=== PATIENT | male | born 1940 | race Two or more races ===

== ENCOUNTER 2022-08-23 16:08 | Emergency (ER) | payer MEDICARE, OTHER ==
[~2022-08-23] VITALS: Ht 165.1 cm; Wt 72.5 kg
[2022-08-23 20:45] VITALS: BP 118/71
== END 2022-08-23 20:50 | disposition home or self-care (01) ==
LOC: ER 16:08
DX: M25.511 Pain in right shoulder (principal); R94.31 Abnormal electrocardiogram [ECG] [EKG]; J44.9 Chronic obstructive pulmonary disease, unspecified; Z90.49 Acquired absence of other specified parts of digestive tract; Z88.1 Allergy status to other antibiotic agents; W06.XXXA Fall from bed, initial encounter; Y93.89 Activity, other specified; Y92.89 Other specified places as the place of occurrence of the external cause; Y99.8 Other external cause status
CPT/HCPCS: 73030; 93005

== ENCOUNTER 2022-10-25 21:22 | Inpatient (IN) | payer MEDICARE, OTHER ==
[~2022-10-25] VITALS: Ht 154.9 cm; Wt 71.3 kg
[2022-10-25] MEDS ORDERED: DexAMETHasone SOD PHOS 10MG/1ML VIAL INJ IV ONE ×2 (21:45→22:15)
[2022-10-25] MEDS ORDERED: ALBUTEROL SULF 2.5 MG/0.5ML(0.5%) NEB SOLN NEB ONE ×3 (21:45→22:15)
[2022-10-25] MEDS ORDERED: LORazepam 2MG/ML-1ML VIAL ONE ×2 (21:56→22:28)
[2022-10-25] MEDS ORDERED: MAGNESIUM SULFATE 1GM/100ML 100 ML IV ONE (22:15)
[2022-10-25] MEDS ORDERED: AZITHROMYCIN 500MG/ 250ML 250 ML IV ONE (22:15)
[2022-10-25] MEDS ORDERED: LORazepam 2MG/ML-1ML VIAL IV ONE (22:30)
[2022-10-25] MEDS ORDERED: ROCURONIUM 10MG/ML 10ML VIAL IV ONE (22:32)
[2022-10-25] MEDS ORDERED: KETAMINE HCL 10 ML ONE (22:34)
[2022-10-25 22:40] VITALS: BP 159/78
[2022-10-25] MEDS ORDERED: PROPOFOL 100 ML IV ONE (22:42)
[2022-10-25] MEDS: PROPOFOL 100 ML IV SCH (22:45)
[2022-10-25 23:10] LABS: Basophils # (auto) 0 10 ^3/uL (0-0.2); Basophils % (auto) 0.1 % (0.0-2.0); Eosinophils # (auto) 0 10 ^3/uL (0-0.8); Hematocrit 39.6 % (41.0-53.0); Hemoglobin 12.6 g/dL (13.5-17.5); Lymphocytes # (auto) 0.8 10 ^3/uL (0.4-5.4); Lymphocytes % (auto) 4.4 % (10.0-50.0); Mean Corpuscular Hemoglobin 31.2 pg (28.0-32.0); Mean Corpuscular Volume 97.5 fL (80.0-100.0); Monocytes # (auto) 1.2 10 ^3/uL (0-1.3); Monocytes % (auto) 6.9 % (0.0-12.0); Neutrophils # (auto) 15.9 10 ^3/uL (1.6-8.6); Neutrophils % (auto) 88.6 % (37.0-80.0); Red Blood Cells 4.06 10^6/uL (4.5-5.90); Red Cell Distribution Width 13.6 % (11.8-14.3); White Blood Cell 17.9 10^3/uL (4.4-10.8)
[2022-10-25 23:18] LABS: INR 0.99 (0.9-1.15); Partial Thromboplastin Time 31.2 sec (24.6-33.4)
[2022-10-25 23:22] LABS: Calcium 8.5 mg/dL (8.5-10.1); Potassium 3.7 mmol/L (3.5-5.1)
[2022-10-25 23:25] LABS: BUN/Creatinine Ratio 34.8; Total Protein 6.1 g/dL (6.4-8.2)
[2022-10-26] VITALS (13 sets, daily range): BP systolic 93–109; BP diastolic 44–56
[2022-10-26] MEDS: fentaNYL Drip 2500mCg/250mlNS 250 ML IV SCH ×2 (00:15→00:30)
[2022-10-26] MEDS ORDERED: fentaNYL Drip 2500mCg/250mlNS 250 ML IV ONE (00:17)
[2022-10-26] MEDS ORDERED: KETAMINE 50mg/ML 10ml Vial (500mg/10ml) IM ONE (01:15)
[2022-10-26] MEDS ORDERED: ROCURONIUM 10MG/ML 10ML VIAL IV ONE ×4 (01:15→06:30)
[2022-10-26 01:18] LABS: Urine Specific Gravity 1.027 (1.001-1.035)
[2022-10-26 01:19] LABS: Urine Blood Negative /uL (Negative)
[2022-10-26] MEDS ORDERED: KETAMINE 50mg/ML 10ml Vial (500mg/10ml) IV ONE (01:30)
[2022-10-26] MEDS ORDERED: PIPERACILLIN-TAZOB 3.375GM 100 ML IV ONE (05:45)
[2022-10-26] MEDS ORDERED: cefTRIAXone 1GM/50ML D5W 50 ML IV ONE (09:45)
[2022-10-26] MEDS ORDERED: MORPHINE SULFATE INJ 2 MG/ml SYRG IV PRN (09:45)
[2022-10-26] MEDS ORDERED: NITROGLYCERIN 0.4 MG SL TAB SL PRN (09:45)
[2022-10-26] MEDS ORDERED: ALBUTEROL SULF 2.5 MG/0.5ML(0.5%) NEB SOLN NEB PRN (09:45)
[2022-10-26] MEDS ORDERED: IPRATROPIUM BROM 0.5 MG/2.5ML INH SOL NEB PRN (09:45)
[2022-10-26] MEDS: AZITHROMYCIN 500MG/ 250ML 250 ML IV SCH (10:00)
[2022-10-26] MEDS: PANTOPRAZOLE 40 MG/10 ML VIAL INJ IV SCH (10:37)
[2022-10-26] MEDS: methylPREDNISolone SOD SUCC 125 MG/2 ML VL IV SCH ×2 (10:38→22:23)
[2022-10-26] MEDS: ENOXAPARIN SOD 40 MG/0.4 ML SYRINGE SC SCH (10:38)
[2022-10-26] MEDS: IPRATROPIUM BROM 0.5 MG/2.5ML INH SOL NEB SCH ×2 (11:38→19:27)
[2022-10-26] MEDS: ALBUTEROL SULF 2.5 MG/0.5ML(0.5%) NEB SOLN NEB SCH ×2 (11:39→19:27)
[2022-10-26 12:14] LABS: Magnesium 10.3 mg/dL (1.6-2.6)
[2022-10-26] MEDS: PROPOFOL 100 ML IV SCH ×2 (14:14→22:46)
[2022-10-26] MEDS ORDERED: ALBUTEROL MEDNEB 2.5 mg/3ml NEB ONE (18:33)
[2022-10-26 23:30] LABS: Urine Blood Negative /uL (Negative); Urine Specific Gravity 1.021 (1.001-1.035)
[2022-10-26 23:44] LABS: Creatinine, Urine 124 mg/dL (30.0-125.0); Sodium Urine < 5 mmol/L (40-220)
[2022-10-27] VITALS (12 sets, daily range): BP systolic 100–117; BP diastolic 42–58
[2022-10-27] MEDS ORDERED: ALBUTEROL MEDNEB 2.5 mg/3ml NEB ONE ×4 (00:40→23:35)
[2022-10-27] MEDS ORDERED: IPRATROPIUM BROM 0.5 MG/2.5ML INH SOL ONE (00:40)
[2022-10-27] MEDS: ALBUTEROL SULF 2.5 MG/0.5ML(0.5%) NEB SOLN NEB SCH ×5 (00:58→23:38)
[2022-10-27] MEDS: IPRATROPIUM BROM 0.5 MG/2.5ML INH SOL NEB SCH ×5 (00:59→23:38)
[2022-10-27] MEDS: fentaNYL Drip 2500mCg/250mlNS 250 ML IV SCH ×2 (03:15→15:55)
[2022-10-27 07:06] LABS: Hematocrit 35.3 % (41.0-53.0); Hemoglobin 11.7 g/dL (13.5-17.5); Mean Corpuscular Hemoglobin 32.1 pg (28.0-32.0); Mean Corpuscular Volume 97.1 fL (80.0-100.0); Red Blood Cells 3.63 10^6/uL (4.5-5.90); Red Cell Distribution Width 13.4 % (11.8-14.3); White Blood Cell 12.2 10^3/uL (4.4-10.8)
[2022-10-27 07:14] LABS: Albumin 2.4 g/dL (3.4-5.0); BUN/Creatinine Ratio 43.8; Calcium 8.4 mg/dL (8.5-10.1); Potassium 4.8 mmol/L (3.5-5.1)
[2022-10-27 07:17] LABS: Bilirubin, Total 0.6 mg/dL (0.2-1.0); Total Protein 6.3 g/dL (6.4-8.2)
[2022-10-27 07:33] LABS: Basophils % (manual) 0 (0.0-2.0); Blast Cells 0; Eosinophils % (manual) 0 (0-7); Metamyelocytes % 0; Myelocytes % 0; Promyelocytes % 0; Reactive Lymphocytes 0
[2022-10-27] MEDS: PROPOFOL 100 ML IV SCH ×3 (08:04→22:05)
[2022-10-27] MEDS: cefTRIAXone 1GM/50ML D5W 50 ML IV SCH (09:12)
[2022-10-27] MEDS: methylPREDNISolone SOD SUCC 125 MG/2 ML VL IV SCH ×2 (10:56→22:07)
[2022-10-27] MEDS: PANTOPRAZOLE 40 MG/10 ML VIAL INJ IV SCH (10:56)
[2022-10-27] MEDS: ENOXAPARIN SOD 40 MG/0.4 ML SYRINGE SC SCH (10:57)
[2022-10-27] MEDS: AZITHROMYCIN 500MG/ 250ML 250 ML IV SCH (10:57)
[2022-10-27] MEDS ORDERED: SODIUM CHLORIDE 0.9% 1,000 ML IV SCH (12:45)
[2022-10-27] MEDS: SODIUM CHLORIDE 0.9% 1,000 ML IV SCH ×2 (13:32→23:00)
[2022-10-27 13:47] LABS: Band Neutrophils % (manual) 12; Lymphocytes % (manual) 5 (10.0-50.0); Monocytes % (manual) 1 (0-12)
[2022-10-27] MEDS ORDERED: OMNIPAQUE ORAL SOLN 500ml 12mg/ml PO ONE ×2 (14:35)
[2022-10-27 16:28] LABS: Urine Specific Gravity 1.014 (1.001-1.035)
[2022-10-27 16:29] LABS: Urine Blood Negative /uL (Negative)
[2022-10-27] MEDS ORDERED: IOHEXOL 300 MG/ML 100ML BOTTLE IJ ONE (16:39)
[2022-10-28] VITALS (62 sets, daily range): BP systolic 105–124; BP diastolic 43–95
[2022-10-28] MEDS ORDERED: ALBUTEROL MEDNEB 2.5 mg/3ml NEB ONE (05:16)
[2022-10-28] MEDS: IPRATROPIUM BROM 0.5 MG/2.5ML INH SOL NEB SCH ×3 (06:11→18:17)
[2022-10-28] MEDS: ALBUTEROL SULF 2.5 MG/0.5ML(0.5%) NEB SOLN NEB SCH ×3 (06:11→18:16)
[2022-10-28] MEDS: SODIUM CHLORIDE 0.9% 1,000 ML IV SCH ×2 (09:17→21:41)
[2022-10-28] MEDS: cefTRIAXone 1GM/50ML D5W 50 ML IV SCH (09:17)
[2022-10-28] MEDS: PANTOPRAZOLE 40 MG/10 ML VIAL INJ IV SCH (13:30)
[2022-10-28] MEDS: methylPREDNISolone SOD SUCC 125 MG/2 ML VL IV SCH ×2 (13:32→22:00)
[2022-10-28] MEDS: AZITHROMYCIN 500MG/ 250ML 250 ML IV SCH (13:34)
[2022-10-28] MEDS: ENOXAPARIN SOD 40 MG/0.4 ML SYRINGE SC SCH (13:34)
[2022-10-28 13:48] LABS: Basophils # (auto) 0 10 ^3/uL (0-0.2); Basophils % (auto) 0.1 % (0.0-2.0); Eosinophils # (auto) 0 10 ^3/uL (0-0.8); Hematocrit 34.2 % (41.0-53.0); Hemoglobin 11.2 g/dL (13.5-17.5); Lymphocytes # (auto) 0.4 10 ^3/uL (0.4-5.4); Lymphocytes % (auto) 3.8 % (10.0-50.0); Mean Corpuscular Hgb Conc. 32.7 g/dL (32.0-36.0); Mean Corpuscular Volume 97.9 fL (80.0-100.0); Monocytes % (auto) 9.8 % (0.0-12.0); Neutrophils # (auto) 9.2 10 ^3/uL (1.6-8.6); Neutrophils % (auto) 86.3 % (37.0-80.0); Red Blood Cells 3.49 10^6/uL (4.5-5.90); Red Cell Distribution Width 13.4 % (11.8-14.3); White Blood Cell 10.7 10^3/uL (4.4-10.8)
[2022-10-28] MEDS ORDERED: SENNA 8.6 MG TAB PO PRN (14:00)
[2022-10-28] MEDS ORDERED: POLYETHYLENE GLYCOL 17 GM PWDR PO PRN (14:00)
[2022-10-28 14:06] LABS: Albumin 2.3 g/dL (3.4-5.0); Calcium 7.8 mg/dL (8.5-10.1); Potassium 5.1 mmol/L (3.5-5.1)
[2022-10-28 14:09] LABS: BUN/Creatinine Ratio 59.5; Bilirubin, Total 0.3 mg/dL (0.2-1.0); Total Protein 5.7 g/dL (6.4-8.2)
[2022-10-28] MEDS: PROPOFOL 100 ML IV SCH ×2 (16:16→23:39)
[2022-10-28] MEDS: fentaNYL Drip 2500mCg/250mlNS 250 ML IV SCH (16:19)
[2022-10-28] MEDS: SENNA 8.6 MG TAB PO SCH (21:00)
[2022-10-29] VITALS (91 sets, daily range): BP systolic 104–141; BP diastolic 47–96
[2022-10-29] MEDS: IPRATROPIUM BROM 0.5 MG/2.5ML INH SOL NEB SCH ×4 (00:05→18:37)
[2022-10-29] MEDS: ALBUTEROL SULF 2.5 MG/0.5ML(0.5%) NEB SOLN NEB SCH ×4 (00:05→18:37)
[2022-10-29 05:28] LABS: Basophils # (auto) 0 10 ^3/uL (0-0.2); Basophils % (auto) 0.1 % (0.0-2.0); Eosinophils # (auto) 0 10 ^3/uL (0-0.8); Hematocrit 35.9 % (41.0-53.0); Hemoglobin 11.6 g/dL (13.5-17.5); Lymphocytes # (auto) 0.3 10 ^3/uL (0.4-5.4); Lymphocytes % (auto) 3.3 % (10.0-50.0); Mean Corpuscular Hemoglobin 31.6 pg (28.0-32.0); Mean Corpuscular Hgb Conc. 32.2 g/dL (32.0-36.0); Mean Corpuscular Volume 98.1 fL (80.0-100.0); Monocytes # (auto) 0.4 10 ^3/uL (0-1.3); Monocytes % (auto) 5.5 % (0.0-12.0); Neutrophils # (auto) 7.4 10 ^3/uL (1.6-8.6); Neutrophils % (auto) 91.1 % (37.0-80.0); Nucleated Red Blood Cells % 0.1 %; Red Blood Cells 3.66 10^6/uL (4.5-5.90); Red Cell Distribution Width 13.4 % (11.8-14.3); White Blood Cell 8.1 10^3/uL (4.4-10.8)
[2022-10-29 05:53] LABS: Albumin 2.3 g/dL (3.4-5.0); BUN/Creatinine Ratio 52.5; Potassium 5.2 mmol/L (3.5-5.1)
[2022-10-29 05:56] LABS: Bilirubin, Total 0.3 mg/dL (0.2-1.0); Total Protein 5.3 g/dL (6.4-8.2)
[2022-10-29] MEDS: PROPOFOL 100 ML IV SCH ×3 (06:45→17:57)
[2022-10-29] MEDS: cefTRIAXone 1GM/50ML D5W 50 ML IV SCH (10:42)
[2022-10-29] MEDS: AZITHROMYCIN 500MG/ 250ML 250 ML IV SCH (10:42)
[2022-10-29] MEDS: methylPREDNISolone SOD SUCC 125 MG/2 ML VL IV SCH ×2 (10:43→21:27)
[2022-10-29] MEDS: ENOXAPARIN SOD 40 MG/0.4 ML SYRINGE SC SCH (10:43)
[2022-10-29] MEDS: PANTOPRAZOLE 40 MG/10 ML VIAL INJ IV SCH (10:43)
[2022-10-29] MEDS: POLYETHYLENE GLYCOL 17 GM PWDR PO SCH (10:44)
[2022-10-29] MEDS ORDERED: HEPARIN SODIUM (PORCINE) 5000 UNITS/ML 1ML VIAL ONE (14:58)
[2022-10-29] MEDS ORDERED: HEPARIN DRIP/D5W 100UNITS/ML 250 ML IV SCH ×2 (15:15→20:00)
[2022-10-29] MEDS ORDERED: HEPARIN SODIUM (PORCINE) 5000 UNITS/ML 1ML VIAL IV ONE (15:30)
[2022-10-29] MEDS ORDERED: LIDOCAINE 2%HCL (LOCAL ANESTH.) INJ 10ml MDV ONE ×2 (15:51→17:09)
[2022-10-29] MEDS ORDERED: IODIXANOL 320MG/ML 100ML BTL IV ONE (15:51)
[2022-10-29] MEDS ORDERED: HEPARIN IN NS 1000Units/500mL 0 ML ONE (15:52)
[2022-10-29 17:00] LABS: Basophils # (auto) 0 10 ^3/uL (0-0.2); Eosinophils # (auto) 0 10 ^3/uL (0-0.8); Hemoglobin 11.5 g/dL (13.5-17.5); Lymphocytes # (auto) 0.2 10 ^3/uL (0.4-5.4); Lymphocytes % (auto) 2.3 % (10.0-50.0); Mean Corpuscular Hgb Conc. 32.9 g/dL (32.0-36.0); Mean Corpuscular Volume 97.4 fL (80.0-100.0); Monocytes # (auto) 0.7 10 ^3/uL (0-1.3); Monocytes % (auto) 7.3 % (0.0-12.0); Neutrophils % (auto) 90.4 % (37.0-80.0); Nucleated Red Blood Cells % 0.1 %; Red Cell Distribution Width 13.3 % (11.8-14.3)
[2022-10-29 17:18] LABS: INR 0.99 (0.9-1.15); Partial Thromboplastin Time 33.9 sec (24.6-33.4)
[2022-10-29] MEDS: SOD CHL 0.45% 1,000 ML IV SCH (21:16)
[2022-10-29] MEDS: SENNA 8.6 MG TAB PO SCH (21:23)
[2022-10-30] VITALS (102 sets, daily range): BP systolic 107–166; BP diastolic 45–86
[2022-10-30] MEDS: IPRATROPIUM BROM 0.5 MG/2.5ML INH SOL NEB SCH ×4 (00:08→18:34)
[2022-10-30] MEDS: ALBUTEROL SULF 2.5 MG/0.5ML(0.5%) NEB SOLN NEB SCH ×4 (00:09→18:34)
[2022-10-30] MEDS: fentaNYL Drip 2500mCg/250mlNS 250 ML IV SCH ×2 (00:15→08:12)
[2022-10-30 04:43] LABS: Basophils # (auto) 0 10 ^3/uL (0-0.2); Eosinophils # (auto) 0 10 ^3/uL (0-0.8); Hematocrit 39.4 % (41.0-53.0); Hemoglobin 12.8 g/dL (13.5-17.5); Lymphocytes # (auto) 0.4 10 ^3/uL (0.4-5.4); Mean Corpuscular Hemoglobin 32.1 pg (28.0-32.0); Mean Corpuscular Hgb Conc. 32.5 g/dL (32.0-36.0); Mean Corpuscular Volume 98.6 fL (80.0-100.0); Monocytes # (auto) 0.5 10 ^3/uL (0-1.3); Monocytes % (auto) 6.2 % (0.0-12.0); Neutrophils # (auto) 7.9 10 ^3/uL (1.6-8.6); Neutrophils % (auto) 89.8 % (37.0-80.0); Red Blood Cells 3.99 10^6/uL (4.5-5.90); Red Cell Distribution Width 13.7 % (11.8-14.3); White Blood Cell 8.8 10^3/uL (4.4-10.8)
[2022-10-30 04:52] LABS: Albumin 2.5 g/dL (3.4-5.0); BUN/Creatinine Ratio 48.6; Calcium 7.9 mg/dL (8.5-10.1); Potassium 4.8 mmol/L (3.5-5.1)
[2022-10-30 04:55] LABS: Bilirubin, Total 0.4 mg/dL (0.2-1.0); Total Protein 5.6 g/dL (6.4-8.2)
[2022-10-30 04:57] LABS: INR 1.02 (0.9-1.15)
[2022-10-30 05:18] LABS: Partial Thromboplastin Time 71.5 sec (24.6-33.4)
[2022-10-30] MEDS: SOD CHL 0.45% 1,000 ML IV SCH (07:46)
[2022-10-30] MEDS: cefTRIAXone 1GM/50ML D5W 50 ML IV SCH (08:12)
[2022-10-30] MEDS: methylPREDNISolone SOD SUCC 125 MG/2 ML VL IV SCH (09:54)
[2022-10-30] MEDS: PANTOPRAZOLE 40 MG/10 ML VIAL INJ IV SCH (09:54)
[2022-10-30] MEDS: AZITHROMYCIN 500MG/ 250ML 250 ML IV SCH (09:55)
[2022-10-30] MEDS: PROPOFOL 100 ML IV SCH ×2 (09:55→13:53)
[2022-10-30] MEDS: POLYETHYLENE GLYCOL 17 GM PWDR PO SCH (09:55)
[2022-10-30] MEDS ORDERED: predniSONE 20 MG TAB PO ONE (10:45)
[2022-10-30] MEDS: D5W 5% 1,000 ML IV SCH (12:30)
[2022-10-30] MEDS: FREE WATER GT SCH ×3 (13:13→21:48)
[2022-10-30] MEDS: ENOXAPARIN SOD 100 MG/1 ML SYRINGE SC SCH (21:48)
[2022-10-30] MEDS: SENNA 8.6 MG TAB PO SCH (21:48)
[2022-10-31] VITALS (95 sets, daily range): BP systolic 94–185; BP diastolic 47–100
[2022-10-31] MEDS: ALBUTEROL SULF 2.5 MG/0.5ML(0.5%) NEB SOLN NEB SCH ×4 (00:09→18:53)
[2022-10-31] MEDS: IPRATROPIUM BROM 0.5 MG/2.5ML INH SOL NEB SCH ×4 (00:09→18:53)
[2022-10-31] MEDS: FREE WATER GT SCH ×6 (02:00→22:00)
[2022-10-31] MEDS: D5W 5% 1,000 ML IV SCH ×2 (02:00→11:55)
[2022-10-31] MEDS: fentaNYL Drip 2500mCg/250mlNS 250 ML IV SCH (02:01)
[2022-10-31] MEDS: PROPOFOL 100 ML IV SCH ×3 (02:02→18:30)
[2022-10-31 06:41] LABS: Hematocrit 36.8 % (41.0-53.0); Hemoglobin 12.1 g/dL (13.5-17.5); Mean Corpuscular Hemoglobin 32.2 pg (28.0-32.0); Mean Corpuscular Hgb Conc. 32.8 g/dL (32.0-36.0); Red Blood Cells 3.75 10^6/uL (4.5-5.90); Red Cell Distribution Width 13.3 % (11.8-14.3); White Blood Cell 12.5 10^3/uL (4.4-10.8)
[2022-10-31 07:02] LABS: Potassium 4.2 mmol/L (3.5-5.1)
[2022-10-31 07:06] LABS: Albumin 2.2 g/dL (3.4-5.0); BUN/Creatinine Ratio 42.6; Basophils % (manual) 0 (0.0-2.0); Blast Cells 0; Calcium 7.7 mg/dL (8.5-10.1); Eosinophils % (manual) 0 (0-7); Metamyelocytes % 0; Myelocytes % 0; Promyelocytes % 0; Reactive Lymphocytes 0
[2022-10-31 07:09] LABS: Bilirubin, Total 0.3 mg/dL (0.2-1.0); Total Protein 5.4 g/dL (6.4-8.2)
[2022-10-31 07:40] LABS: Band Neutrophils % (manual) 2; Lymphocytes % (manual) 20 (10.0-50.0); Monocytes % (manual) 1 (0-12)
[2022-10-31] MEDS: POLYETHYLENE GLYCOL 17 GM PWDR PO SCH (10:00)
[2022-10-31] MEDS: AZITHROMYCIN 500MG/ 250ML 250 ML IV SCH (10:20)
[2022-10-31] MEDS: ENOXAPARIN SOD 100 MG/1 ML SYRINGE SC SCH ×2 (10:25→22:05)
[2022-10-31] MEDS: PANTOPRAZOLE 40 MG/10 ML VIAL INJ IV SCH (10:25)
[2022-10-31] MEDS: predniSONE 20 MG TAB PO SCH (10:26)
[2022-10-31] MEDS ORDERED: FAMO20TA10 GT (10:30)
[2022-10-31] MEDS ORDERED: UMEC1AER IN (10:30)
[2022-10-31] MEDS ORDERED: METO5TAB67 GT (10:30)
[2022-10-31] MEDS ORDERED: LACT10PA2 GT (10:30)
[2022-10-31] MEDS ORDERED: DONE10TA5 PO (10:30)
[2022-10-31] MEDS: cefTRIAXone 1GM/50ML D5W 50 ML IV SCH (12:25)
[2022-10-31] MEDS: MORPHINE SULFATE INJ 2 MG/ml SYRG IV PRN (16:44)
[2022-10-31] MEDS ORDERED: Jevity 1.2 Cal/Fiber 1 Liter GT SCH (18:00)
[2022-10-31] MEDS: ACETAMINOPHEN 325 MG TAB PO PRN (20:30)
[2022-10-31] MEDS: SENNA 8.6 MG TAB PO SCH (22:05)
[2022-10-31] MEDS ORDERED: dilTIAZem 25 MG/5 ML VIAL IV ONE ×2 (23:15→23:18)
[2022-11-01] VITALS (100 sets, daily range): BP systolic 100–158; BP diastolic 42–80
[2022-11-01] MEDS: PROPOFOL 100 ML IV SCH (00:16)
[2022-11-01] MEDS: ALBUTEROL SULF 2.5 MG/0.5ML(0.5%) NEB SOLN NEB SCH ×4 (00:28→18:51)
[2022-11-01] MEDS: IPRATROPIUM BROM 0.5 MG/2.5ML INH SOL NEB SCH ×4 (00:28→18:51)
[2022-11-01] MEDS: D5W 5% 1,000 ML IV SCH ×2 (01:15→08:42)
[2022-11-01] MEDS: FREE WATER GT SCH ×8 (02:00→22:52)
[2022-11-01 05:11] LABS: Hematocrit 35.7 % (41.0-53.0); Hemoglobin 11.5 g/dL (13.5-17.5); Mean Corpuscular Hemoglobin 31.5 pg (28.0-32.0); Mean Corpuscular Hgb Conc. 32.2 g/dL (32.0-36.0); Mean Corpuscular Volume 97.8 fL (80.0-100.0); Red Blood Cells 3.65 10^6/uL (4.5-5.90); Red Cell Distribution Width 13.5 % (11.8-14.3); White Blood Cell 10.5 10^3/uL (4.4-10.8)
[2022-11-01 05:21] LABS: Basophils % (manual) 0 (0.0-2.0); Blast Cells 0; Eosinophils % (manual) 0 (0-7); Myelocytes % 0; Promyelocytes % 0; Reactive Lymphocytes 0
[2022-11-01 05:27] LABS: Albumin 2.1 g/dL (3.4-5.0); Calcium 7.3 mg/dL (8.5-10.1)
[2022-11-01 05:31] LABS: BUN/Creatinine Ratio 37.5; Bilirubin, Total 0.5 mg/dL (0.2-1.0); Total Protein 4.5 g/dL (6.4-8.2)
[2022-11-01 07:38] LABS: Band Neutrophils % (manual) 2; Lymphocytes % (manual) 16 (10.0-50.0); Metamyelocytes % 1; Monocytes % (manual) 7 (0-12)
[2022-11-01] MEDS: cefTRIAXone 1GM/50ML D5W 50 ML IV SCH (08:41)
[2022-11-01] MEDS: AZITHROMYCIN 500MG/ 250ML 250 ML IV SCH (08:41)
[2022-11-01] MEDS: predniSONE 20 MG TAB PO SCH (08:41)
[2022-11-01] MEDS: ENOXAPARIN SOD 100 MG/1 ML SYRINGE SC SCH ×2 (08:41→22:51)
[2022-11-01] MEDS: PANTOPRAZOLE 40 MG/10 ML VIAL INJ IV SCH (08:41)
[2022-11-01] MEDS: POLYETHYLENE GLYCOL 17 GM PWDR PO SCH (08:42)
[2022-11-01] MEDS ORDERED: predniSONE 20 MG TAB PO SCH (09:30)
[2022-11-01] MEDS: fentaNYL Drip 2500mCg/250mlNS 250 ML IV SCH (17:40)
[2022-11-01] MEDS: SENNA 8.6 MG TAB PO SCH (22:50)
[2022-11-02] VITALS (99 sets, daily range): BP systolic 94–179; BP diastolic 45–89
[2022-11-02] MEDS: IPRATROPIUM BROM 0.5 MG/2.5ML INH SOL NEB SCH ×4 (00:26→18:34)
[2022-11-02] MEDS: ALBUTEROL SULF 2.5 MG/0.5ML(0.5%) NEB SOLN NEB SCH ×4 (00:26→18:33)
[2022-11-02] MEDS: D5W 5% 1,000 ML IV SCH ×2 (01:04→16:15)
[2022-11-02] MEDS: PROPOFOL 100 ML IV SCH (01:15)
[2022-11-02] MEDS: FREE WATER GT SCH ×6 (02:17→22:00)
[2022-11-02 06:41] LABS: Albumin 2.1 g/dL (3.4-5.0); BUN/Creatinine Ratio 27.5; Potassium 3.6 mmol/L (3.5-5.1)
[2022-11-02 06:44] LABS: Bilirubin, Total 0.6 mg/dL (0.2-1.0); Total Protein 4.9 g/dL (6.4-8.2)
[2022-11-02 06:59] LABS: Basophils # (auto) 0 10 ^3/uL (0-0.2); Basophils % (auto) 0.2 % (0.0-2.0); Eosinophils # (auto) 0.1 10 ^3/uL (0-0.8); Eosinophils % (auto) 0.6 % (0.0-7.0); Hematocrit 37.6 % (41.0-53.0); Hemoglobin 11.9 g/dL (13.5-17.5); Lymphocytes # (auto) 1.9 10 ^3/uL (0.4-5.4); Lymphocytes % (auto) 15.6 % (10.0-50.0); Mean Corpuscular Hemoglobin 31.1 pg (28.0-32.0); Mean Corpuscular Hgb Conc. 31.6 g/dL (32.0-36.0); Mean Corpuscular Volume 98.3 fL (80.0-100.0); Monocytes # (auto) 1.3 10 ^3/uL (0-1.3); Monocytes % (auto) 10.3 % (0.0-12.0); Neutrophils # (auto) 8.9 10 ^3/uL (1.6-8.6); Neutrophils % (auto) 73.3 % (37.0-80.0); Nucleated Red Blood Cells % 0.1 %; Red Blood Cells 3.82 10^6/uL (4.5-5.90); Red Cell Distribution Width 13.8 % (11.8-14.3); White Blood Cell 12.2 10^3/uL (4.4-10.8)
[2022-11-02] MEDS: MORPHINE SULFATE INJ 2 MG/ml SYRG IV PRN (08:42)
[2022-11-02] MEDS: cefTRIAXone 1GM/50ML D5W 50 ML IV SCH (08:44)
[2022-11-02] MEDS: POLYETHYLENE GLYCOL 17 GM PWDR PO SCH (10:00)
[2022-11-02] MEDS: ENOXAPARIN SOD 100 MG/1 ML SYRINGE SC SCH ×2 (11:11→22:30)
[2022-11-02] MEDS: PANTOPRAZOLE 40 MG/10 ML VIAL INJ IV SCH (11:12)
[2022-11-02] MEDS: SENNA 8.6 MG TAB PO SCH (22:30)
[2022-11-03] VITALS (64 sets, daily range): BP systolic 79–171; BP diastolic 45–106
[2022-11-03] MEDS: ALBUTEROL SULF 2.5 MG/0.5ML(0.5%) NEB SOLN NEB SCH ×4 (00:29→18:42)
[2022-11-03] MEDS: IPRATROPIUM BROM 0.5 MG/2.5ML INH SOL NEB SCH ×4 (00:29→18:42)
[2022-11-03] MEDS: PROPOFOL 100 ML IV SCH (01:15)
[2022-11-03] MEDS: FREE WATER GT SCH ×6 (02:00→21:34)
[2022-11-03] MEDS: fentaNYL Drip 2500mCg/250mlNS 250 ML IV SCH (03:00)
[2022-11-03 05:16] LABS: Basophils # (auto) 0 10 ^3/uL (0-0.2); Basophils % (auto) 0.1 % (0.0-2.0); Eosinophils # (auto) 0.1 10 ^3/uL (0-0.8); Eosinophils % (auto) 0.7 % (0.0-7.0); Hematocrit 38.2 % (41.0-53.0); Hemoglobin 12.1 g/dL (13.5-17.5); Lymphocytes # (auto) 1.7 10 ^3/uL (0.4-5.4); Lymphocytes % (auto) 12.8 % (10.0-50.0); Mean Corpuscular Hemoglobin 30.8 pg (28.0-32.0); Mean Corpuscular Hgb Conc. 31.6 g/dL (32.0-36.0); Mean Corpuscular Volume 97.3 fL (80.0-100.0); Monocytes # (auto) 1.4 10 ^3/uL (0-1.3); Monocytes % (auto) 10.3 % (0.0-12.0); Neutrophils # (auto) 10.1 10 ^3/uL (1.6-8.6); Neutrophils % (auto) 76.1 % (37.0-80.0); Red Blood Cells 3.93 10^6/uL (4.5-5.90); Red Cell Distribution Width 13.4 % (11.8-14.3); White Blood Cell 13.2 10^3/uL (4.4-10.8)
[2022-11-03 05:33] LABS: Albumin 2.1 g/dL (3.4-5.0); Calcium 7.9 mg/dL (8.5-10.1); Potassium 3.4 mmol/L (3.5-5.1)
[2022-11-03 05:50] LABS: BUN/Creatinine Ratio 20.4; Bilirubin, Total 0.8 mg/dL (0.2-1.0); Total Protein 5.3 g/dL (6.4-8.2)
[2022-11-03] MEDS: POLYETHYLENE GLYCOL 17 GM PWDR PO SCH (10:00)
[2022-11-03] MEDS: cefTRIAXone 1GM/50ML D5W 50 ML IV SCH (10:08)
[2022-11-03] MEDS: D5W 5% 1,000 ML IV SCH (10:11)
[2022-11-03] MEDS: ENOXAPARIN SOD 100 MG/1 ML SYRINGE SC SCH ×2 (10:12→21:33)
[2022-11-03] MEDS: PANTOPRAZOLE 40 MG/10 ML VIAL INJ IV SCH (10:12)
[2022-11-03] MEDS ORDERED: POTASSIUM EFFERVESENT TAB 25 MEQ GT ONE (14:30)
[2022-11-03] MEDS: ACETAMINOPHEN 325 MG TAB PO PRN (15:52)
[2022-11-03] MEDS: SENNA 8.6 MG TAB PO SCH (21:33)
[2022-11-04] VITALS (47 sets, daily range): BP systolic 102–169; BP diastolic 45–92
[2022-11-04] MEDS: fentaNYL Drip 2500mCg/250mlNS 250 ML IV SCH (00:15)
[2022-11-04] MEDS: ACETAMINOPHEN 325 MG TAB PO PRN (00:19)
[2022-11-04] MEDS: PROPOFOL 100 ML IV SCH (01:15)
[2022-11-04] MEDS: FREE WATER GT SCH ×7 (03:03→22:47)
[2022-11-04 05:10] LABS: Basophils # (auto) 0 10 ^3/uL (0-0.2); Basophils % (auto) 0.1 % (0.0-2.0); Eosinophils # (auto) 0.1 10 ^3/uL (0-0.8); Hemoglobin 12.1 g/dL (13.5-17.5); Monocytes # (auto) 1.7 10 ^3/uL (0-1.3)
[2022-11-04 05:13] LABS: Eosinophils % (auto) 0.5 % (0.0-7.0); Hematocrit 38.1 % (41.0-53.0); Lymphocytes # (auto) 1.4 10 ^3/uL (0.4-5.4); Lymphocytes % (auto) 8.7 % (10.0-50.0); Mean Corpuscular Hemoglobin 32.1 pg (28.0-32.0); Mean Corpuscular Hgb Conc. 31.7 g/dL (32.0-36.0); Mean Corpuscular Volume 101.2 fL (80.0-100.0); Monocytes % (auto) 10.5 % (0.0-12.0); Neutrophils % (auto) 80.2 % (37.0-80.0); Red Blood Cells 3.76 10^6/uL (4.5-5.90); Red Cell Distribution Width 13.3 % (11.8-14.3); White Blood Cell 16.2 10^3/uL (4.4-10.8)
[2022-11-04 05:35] LABS: Albumin 2.5 g/dL (3.4-5.0); Calcium 7.8 mg/dL (8.5-10.1); Potassium 3.8 mmol/L (3.5-5.1)
[2022-11-04 05:38] LABS: BUN/Creatinine Ratio 24.6; Bilirubin, Total 0.8 mg/dL (0.2-1.0); Total Protein 5.4 g/dL (6.4-8.2)
[2022-11-04] MEDS: ALBUTEROL SULF 2.5 MG/0.5ML(0.5%) NEB SOLN NEB SCH ×4 (06:11→19:07)
[2022-11-04] MEDS: IPRATROPIUM BROM 0.5 MG/2.5ML INH SOL NEB SCH ×4 (06:12→19:07)
[2022-11-04] MEDS: MORPHINE SULFATE INJ 2 MG/ml SYRG IV PRN (08:07)
[2022-11-04] MEDS: cefTRIAXone 1GM/50ML D5W 50 ML IV SCH (08:58)
[2022-11-04] MEDS: POLYETHYLENE GLYCOL 17 GM PWDR PO SCH (09:52)
[2022-11-04] MEDS: ENOXAPARIN SOD 100 MG/1 ML SYRINGE SC SCH ×2 (09:53→21:29)
[2022-11-04] MEDS: PANTOPRAZOLE 40 MG/10 ML VIAL INJ IV SCH (09:53)
[2022-11-04] MEDS ORDERED: Jevity 1.2 Cal/Fiber 1 Liter GT SCH (10:30)
[2022-11-05] VITALS (9 sets, daily range): BP systolic 116–164; BP diastolic 56–76
[2022-11-05] MEDS: ALBUTEROL SULF 2.5 MG/0.5ML(0.5%) NEB SOLN NEB SCH ×4 (00:14→19:34)
[2022-11-05] MEDS: IPRATROPIUM BROM 0.5 MG/2.5ML INH SOL NEB SCH ×4 (00:14→19:34)
[2022-11-05] MEDS: FREE WATER GT SCH ×6 (01:47→21:58)
[2022-11-05] MEDS: cefTRIAXone 1GM/50ML D5W 50 ML IV SCH (09:19)
[2022-11-05] MEDS: ENOXAPARIN SOD 100 MG/1 ML SYRINGE SC SCH ×2 (09:20→21:52)
[2022-11-05] MEDS: PANTOPRAZOLE 40 MG/10 ML VIAL INJ IV SCH (09:20)
[2022-11-05] MEDS: SODIUM CHLORIDE 0.9% 1,000 ML IV SCH ×2 (12:01→21:15)
[2022-11-05] MEDS ORDERED: dilTIAZem 25 MG/5 ML VIAL IV ONE (17:00)
[2022-11-05] MEDS ORDERED: AMIODARONE HCL 150 MG in D5W 5% 100 ML IV ONE (17:30)
[2022-11-05] MEDS ORDERED: AMIODARONE 450mg/250ml AE 250 ML IV SCH ×2 (17:30→23:30)
[2022-11-05] MEDS ORDERED: DIGOXIN (250MCG/ML) 2 ML AMPULE IV ONE ×2 (17:30→17:50)
[2022-11-06] MEDS: IPRATROPIUM BROM 0.5 MG/2.5ML INH SOL NEB SCH ×4 (00:07→18:24)
[2022-11-06] MEDS: ALBUTEROL SULF 2.5 MG/0.5ML(0.5%) NEB SOLN NEB SCH ×4 (00:07→18:24)
[2022-11-06] MEDS: AMIODARONE 450mg/250ml AE 250 ML IV SCH ×2 (00:22→04:54)
[2022-11-06] MEDS: FREE WATER GT SCH ×6 (01:56→21:31)
[2022-11-06] MEDS: SODIUM CHLORIDE 0.9% 1,000 ML IV SCH ×2 (03:37→17:16)
[2022-11-06] MEDS: ACETAMINOPHEN 650 MG RECT SUPP PR PRN (06:09)
[2022-11-06 06:38] LABS: Basophils # (auto) 0 10 ^3/uL (0-0.2); Basophils % (auto) 0.1 % (0.0-2.0); Eosinophils # (auto) 0 10 ^3/uL (0-0.8); Hematocrit 28.3 % (41.0-53.0); Hemoglobin 8.8 g/dL (13.5-17.5); Lymphocytes # (auto) 0.7 10 ^3/uL (0.4-5.4); Lymphocytes % (auto) 3.3 % (10.0-50.0); Mean Corpuscular Hemoglobin 31.2 pg (28.0-32.0); Mean Corpuscular Hgb Conc. 31.3 g/dL (32.0-36.0); Mean Corpuscular Volume 99.8 fL (80.0-100.0); Monocytes # (auto) 2.2 10 ^3/uL (0-1.3); Monocytes % (auto) 10.6 % (0.0-12.0); Neutrophils # (auto) 17.9 10 ^3/uL (1.6-8.6); Red Blood Cells 2.83 10^6/uL (4.5-5.90); Red Cell Distribution Width 13.8 % (11.8-14.3); White Blood Cell 20.8 10^3/uL (4.4-10.8)
[2022-11-06 06:58] LABS: BUN/Creatinine Ratio 26.7; Calcium 7.7 mg/dL (8.5-10.1); Potassium 3.8 mmol/L (3.5-5.1)
[2022-11-06] MEDS: cefTRIAXone 1GM/50ML D5W 50 ML IV SCH (09:23)
[2022-11-06] MEDS: PANTOPRAZOLE 40 MG/10 ML VIAL INJ IV SCH (09:25)
[2022-11-06] MEDS: ENOXAPARIN SOD 100 MG/1 ML SYRINGE SC SCH ×2 (09:25→21:31)
[2022-11-06 09:39] VITALS: BP 125/51
[2022-11-06] MEDS ORDERED: DIGOXIN (250MCG/ML) 2 ML AMPULE IV SCH (10:00)
[2022-11-06] MEDS ORDERED: PIPERACILLIN-TAZOB 3.375GM 100 ML IV ONE ×2 (10:30→10:45)
[2022-11-06] MEDS ORDERED: AMIODARONE HCL 200 MG TAB PO ONE (16:15)
[2022-11-06 18:00] VITALS: BP 152/82
[2022-11-06] MEDS: PIPERACILLIN-TAZOB 3.375GM 100 ML IV SCH (21:30)
[2022-11-06] MEDS: AMIODARONE HCL 200 MG TAB GT SCH (21:30)
[2022-11-06 22:00] VITALS: BP 143/60
[2022-11-06] MEDS ORDERED: AMIODARONE HCL 200 MG TAB PO SCH (22:00)
[2022-11-07] MEDS: IPRATROPIUM BROM 0.5 MG/2.5ML INH SOL NEB SCH ×4 (01:06→19:00)
[2022-11-07] MEDS: ALBUTEROL SULF 2.5 MG/0.5ML(0.5%) NEB SOLN NEB SCH ×4 (01:07→19:00)
[2022-11-07] MEDS: FREE WATER GT SCH ×6 (03:01→21:14)
[2022-11-07 05:00] VITALS: BP 149/54
[2022-11-07] MEDS: ACETAMINOPHEN 650 MG RECT SUPP PR PRN (05:11)
[2022-11-07] MEDS: PIPERACILLIN-TAZOB 3.375GM 100 ML IV SCH ×3 (05:19→23:00)
[2022-11-07 05:56] LABS: Basophils # (auto) 0 10 ^3/uL (0-0.2); Eosinophils # (auto) 0 10 ^3/uL (0-0.8); Lymphocytes # (auto) 0.3 10 ^3/uL (0.4-5.4)
[2022-11-07 05:59] LABS: BUN/Creatinine Ratio 36.5; Calcium 7.8 mg/dL (8.5-10.1); Magnesium 2.2 mg/dL (1.6-2.6); Potassium 3.8 mmol/L (3.5-5.1)
[2022-11-07 06:01] LABS: Hematocrit 22.7 % (41.0-53.0); Hemoglobin 7.6 g/dL (13.5-17.5); Lymphocytes % (auto) 1.3 % (10.0-50.0); Mean Corpuscular Hemoglobin 32.5 pg (28.0-32.0); Mean Corpuscular Hgb Conc. 33.4 g/dL (32.0-36.0); Mean Corpuscular Volume 97.5 fL (80.0-100.0); Monocytes # (auto) 1.8 10 ^3/uL (0-1.3); Neutrophils # (auto) 18.2 10 ^3/uL (1.6-8.6); Neutrophils % (auto) 89.7 % (37.0-80.0); Nucleated Red Blood Cells % 0.1 %; Red Blood Cells 2.33 10^6/uL (4.5-5.90); Red Cell Distribution Width 13.4 % (11.8-14.3); White Blood Cell 20.3 10^3/uL (4.4-10.8)
[2022-11-07 09:00] VITALS: BP 142/39
[2022-11-07] MEDS: ENOXAPARIN SOD 100 MG/1 ML SYRINGE SC SCH (10:00)
[2022-11-07] MEDS: PANTOPRAZOLE 40 MG/10 ML VIAL INJ IV SCH (10:33)
[2022-11-07] MEDS: AMIODARONE HCL 200 MG TAB GT SCH ×2 (10:34→21:15)
[2022-11-07 11:40] VITALS: BP 132/60
[2022-11-07 13:00] VITALS: BP 126/45
[2022-11-07] MEDS: SODIUM CHLORIDE 0.9% 1,000 ML IV SCH (13:15)
[2022-11-07 16:46] LABS: % Iron Saturation 6.4 % (20-55)
[2022-11-07 16:57] LABS: Ferritin 233.6 ng/mL (10-322); Folate (Folic Acid) 15.55 ng/mL (5.38-24)
[2022-11-07 17:00] VITALS: BP 121/56
[2022-11-07] MEDS ORDERED: VANCOMYCIN HCL 125MG/5ML ORAL SOL PO SCH (18:00)
[2022-11-07] MEDS: metroNIDAZOLE 500MG/100ML 100 ML IV SCH (21:13)
[2022-11-07] MEDS: FLORASTOR (S. BOULARDII) 250 MG CAP GT SCH (21:15)
[2022-11-07] MEDS: FAMOTIDINE (10MG/ML) 2ML VL IV SCH (21:15)
[2022-11-07] MEDS ORDERED: FLORASTOR (S. BOULARDII) 250 MG CAP PO SCH (22:00)
[2022-11-07] MEDS: MORPHINE SULFATE INJ 2 MG/ml SYRG IV PRN (23:07)
[2022-11-08] VITALS (14 sets, daily range): BP systolic 106–128; BP diastolic 44–81
[2022-11-08] MEDS: IPRATROPIUM BROM 0.5 MG/2.5ML INH SOL NEB SCH ×4 (00:05→19:09)
[2022-11-08] MEDS: ALBUTEROL SULF 2.5 MG/0.5ML(0.5%) NEB SOLN NEB SCH ×4 (00:05→19:09)
[2022-11-08] MEDS: AMIODARONE HCL 200 MG TAB GT SCH ×2 (00:20→12:14)
[2022-11-08] MEDS: FLORASTOR (S. BOULARDII) 250 MG CAP GT SCH ×2 (00:20→12:14)
[2022-11-08] MEDS: FAMOTIDINE (10MG/ML) 2ML VL IV SCH ×2 (00:20→12:14)
[2022-11-08] MEDS ORDERED: FLUTICASONE PROP NASAL SPR 0.05 % (50MCG) 16GM EACHNOSTRI PRN ×2 (00:45→07:15)
[2022-11-08] MEDS: FREE WATER GT SCH ×6 (02:00→22:50)
[2022-11-08] MEDS: metroNIDAZOLE 500MG/100ML 100 ML IV SCH ×3 (04:05→21:00)
[2022-11-08] MEDS: PIPERACILLIN-TAZOB 3.375GM 100 ML IV SCH ×3 (06:02→22:00)
[2022-11-08 06:22] LABS: Basophils # (auto) 0 10 ^3/uL (0-0.2); Eosinophils # (auto) 0 10 ^3/uL (0-0.8); Hematocrit 17.5 % (41.0-53.0); Lymphocytes # (auto) 0.6 10 ^3/uL (0.4-5.4); Monocytes # (auto) 1.4 10 ^3/uL (0-1.3); Potassium 3.6 mmol/L (3.5-5.1); Red Cell Distribution Width 13.4 % (11.8-14.3)
[2022-11-08 06:28] LABS: BUN/Creatinine Ratio 35.1; Calcium 7.7 mg/dL (8.5-10.1)
[2022-11-08 06:32] LABS: Basophils % (auto) 0.1 % (0.0-2.0); Lymphocytes % (auto) 3.3 % (10.0-50.0); Mean Corpuscular Hemoglobin 32.3 pg (28.0-32.0); Mean Corpuscular Hgb Conc. 33.5 g/dL (32.0-36.0); Mean Corpuscular Volume 96.5 fL (80.0-100.0); Neutrophils # (auto) 15.9 10 ^3/uL (1.6-8.6); Neutrophils % (auto) 88.6 % (37.0-80.0); Nucleated Red Blood Cells % 0.1 %; Red Blood Cells 1.81 10^6/uL (4.5-5.90); White Blood Cell 17.9 10^3/uL (4.4-10.8)
[2022-11-08 06:33] LABS: Bilirubin, Total 1.3 mg/dL (0.2-1.0); Total Protein 5.6 g/dL (6.4-8.2)
[2022-11-08 07:54] LABS: Hemoglobin 5.9 g/dL (13.5-17.5)
[2022-11-08] MEDS ORDERED: ALBUMIN 25% 50 ML IV ONE (09:00)
[2022-11-08 09:54] LABS: Basophils # (auto) 0 10 ^3/uL (0-0.2); Basophils % (auto) 0.1 % (0.0-2.0); Eosinophils # (auto) 0 10 ^3/uL (0-0.8); Lymphocytes # (auto) 0.8 10 ^3/uL (0.4-5.4); Mean Corpuscular Hgb Conc. 32.9 g/dL (32.0-36.0)
[2022-11-08 09:55] LABS: Hematocrit 15.9 % (41.0-53.0); Lymphocytes % (auto) 5.6 % (10.0-50.0); Mean Corpuscular Hemoglobin 31.7 pg (28.0-32.0); Mean Corpuscular Volume 96.4 fL (80.0-100.0); Monocytes # (auto) 1.1 10 ^3/uL (0-1.3); Monocytes % (auto) 8.1 % (0.0-12.0); Neutrophils # (auto) 12.1 10 ^3/uL (1.6-8.6); Neutrophils % (auto) 86.2 % (37.0-80.0); Red Blood Cells 1.65 10^6/uL (4.5-5.90); Red Cell Distribution Width 13.4 % (11.8-14.3)
[2022-11-08] MEDS ORDERED: FAMOTIDINE (10MG/ML) 2ML VL IV SCH (10:00)
[2022-11-08 10:25] LABS: Hemoglobin 5.2 g/dL (13.5-17.5)
[2022-11-08] MEDS: PANTOPRAZOLE 40mg/50ML NS AE 50 ML IV SCH ×3 (11:00→21:00)
[2022-11-08 11:23] LABS: Albumin 2.1 g/dL (3.4-5.0); BUN/Creatinine Ratio 40.7; Calcium 7.2 mg/dL (8.5-10.1); Magnesium 2.4 mg/dL (1.6-2.6); Potassium 3.3 mmol/L (3.5-5.1)
[2022-11-08 11:26] LABS: Bilirubin, Total 1.1 mg/dL (0.2-1.0); Total Protein 4.8 g/dL (6.4-8.2)
[2022-11-08] MEDS ORDERED: IOHEXOL 350 MG/ML 100ML IJ ONE (11:46)
[2022-11-08] MEDS: VANCOMYCIN HCL 125MG/5ML ORAL SOL PO SCH ×3 (12:00→22:00)
[2022-11-08] MEDS: SODIUM FERR GLUC 62.5MG/5ML 125 MG in SODIUM CHL 0.9% 100 ML IV SCH (13:37)
[2022-11-08] MEDS ORDERED: FUROSEMIDE 20 MG/2 ML VIAL IV ONE (14:30)
[2022-11-08 14:45] LABS: % Iron Saturation 9.3 % (20-55)
[2022-11-08] MEDS: FLUTICASONE PROP NASAL SPR 0.05 % (50MCG) 16GM EACHNOSTRI SCH (16:04)
[2022-11-08] MEDS ORDERED: FLUTICASONE PROP NASAL SPR 0.05 % (50MCG) 16GM EACHNOSTRI SCH (22:00)
[2022-11-09] VITALS (11 sets, daily range): BP systolic 96–132; BP diastolic 50–66
[2022-11-09] MEDS: ALBUTEROL SULF 2.5 MG/0.5ML(0.5%) NEB SOLN NEB SCH ×4 (00:17→18:12)
[2022-11-09] MEDS: IPRATROPIUM BROM 0.5 MG/2.5ML INH SOL NEB SCH ×4 (00:17→18:12)
[2022-11-09] MEDS: FLUTICASONE PROP NASAL SPR 0.05 % (50MCG) 16GM EACHNOSTRI SCH ×3 (00:56→21:58)
[2022-11-09 01:29] LABS: Hemoglobin 7.7 g/dL (13.5-17.5)
[2022-11-09 01:31] LABS: Hematocrit 22.9 % (41.0-53.0)
[2022-11-09] MEDS: FREE WATER GT SCH ×6 (02:10→21:58)
[2022-11-09] MEDS: PANTOPRAZOLE 40mg/50ML NS AE 50 ML IV SCH ×5 (02:12→21:59)
[2022-11-09] MEDS: PIPERACILLIN-TAZOB 3.375GM 100 ML IV SCH ×3 (02:12→23:36)
[2022-11-09] MEDS: metroNIDAZOLE 500MG/100ML 100 ML IV SCH ×3 (05:05→21:58)
[2022-11-09] MEDS: VANCOMYCIN HCL 125MG/5ML ORAL SOL PO SCH ×4 (05:42→22:05)
[2022-11-09 06:46] LABS: Basophils # (auto) 0 10 ^3/uL (0-0.2); Basophils % (auto) 0.2 % (0.0-2.0); Eosinophils # (auto) 0 10 ^3/uL (0-0.8); Eosinophils % (auto) 0.1 % (0.0-7.0); Lymphocytes # (auto) 0.7 10 ^3/uL (0.4-5.4); Mean Corpuscular Volume 91.2 fL (80.0-100.0); Monocytes # (auto) 0.9 10 ^3/uL (0-1.3)
[2022-11-09 06:48] LABS: Lymphocytes % (auto) 6.1 % (10.0-50.0); Mean Corpuscular Hemoglobin 30.7 pg (28.0-32.0); Mean Corpuscular Hgb Conc. 33.7 g/dL (32.0-36.0); Monocytes % (auto) 7.3 % (0.0-12.0); Neutrophils % (auto) 86.3 % (37.0-80.0); Nucleated Red Blood Cells % 0.1 %; Red Cell Distribution Width 16.3 % (11.8-14.3); White Blood Cell 11.6 10^3/uL (4.4-10.8)
[2022-11-09 07:09] LABS: Hemoglobin 6.8 g/dL (13.5-17.5)
[2022-11-09 07:12] LABS: Albumin 1.8 g/dL (3.4-5.0); Calcium 6.6 mg/dL (8.5-10.1); Magnesium 2.2 mg/dL (1.6-2.6)
[2022-11-09 07:24] LABS: Bilirubin, Total 1.5 mg/dL (0.2-1.0); Total Protein 4.2 g/dL (6.4-8.2)
[2022-11-09 07:25] LABS: BUN/Creatinine Ratio 34.7
[2022-11-09 07:28] LABS: Potassium 2.7 mmol/L (3.5-5.1)
[2022-11-09] MEDS ORDERED: POTASSIUM CHL 20 Meq TABLET PO ONE (08:15)
[2022-11-09] MEDS ORDERED: POTASSIUM EFFERVESENT TAB 25 MEQ GT ONE ×2 (08:45→21:00)
[2022-11-09] MEDS: AMIODARONE HCL 200 MG TAB GT SCH ×2 (09:08→21:59)
[2022-11-09] MEDS: POTASSIUM CHL 20MEQ/100ML 100 ML IV SCH ×2 (09:08→10:32)
[2022-11-09] MEDS: FLORASTOR (S. BOULARDII) 250 MG CAP GT SCH ×2 (09:09→21:59)
[2022-11-09] MEDS: FAMOTIDINE (10MG/ML) 2ML VL IV SCH ×2 (09:09→21:59)
[2022-11-09] MEDS ORDERED: FUROSEMIDE 20 MG/2 ML VIAL IV ONE (11:00)
[2022-11-09] MEDS: SODIUM FERR GLUC 62.5MG/5ML 125 MG in SODIUM CHL 0.9% 100 ML IV SCH (13:58)
[2022-11-09 14:33] LABS: INR 1.03 (0.9-1.15); Partial Thromboplastin Time 35.4 sec (24.6-33.4)
[2022-11-09] MEDS ORDERED: ALPRAZolam 0.25 MG TAB PO ONE (16:00)
[2022-11-09] MEDS: FUROSEMIDE 20 MG/2 ML VIAL IV SCH (19:50)
[2022-11-10] VITALS (11 sets, daily range): BP systolic 94–143; BP diastolic 51–66
[2022-11-10] MEDS: ALBUTEROL SULF 2.5 MG/0.5ML(0.5%) NEB SOLN NEB SCH ×4 (00:26→18:22)
[2022-11-10] MEDS: IPRATROPIUM BROM 0.5 MG/2.5ML INH SOL NEB SCH ×4 (00:27→18:22)
[2022-11-10] MEDS: PANTOPRAZOLE 40mg/50ML NS AE 50 ML IV SCH ×2 (03:25→09:02)
[2022-11-10] MEDS: FREE WATER GT SCH ×6 (03:25→21:35)
[2022-11-10 04:04] LABS: Urine Bacteria FEW /hpf (None Seen); Urine Blood 1+ /uL (Negative); Urine Specific Gravity 1.025 (1.001-1.035); Urine WBC 9 /hpf (0 - 3)
[2022-11-10] MEDS: metroNIDAZOLE 500MG/100ML 100 ML IV SCH ×3 (07:19→21:32)
[2022-11-10] MEDS: VANCOMYCIN HCL 125MG/5ML ORAL SOL PO SCH ×4 (07:19→21:35)
[2022-11-10] MEDS: FUROSEMIDE 20 MG/2 ML VIAL IV SCH ×2 (07:19→17:58)
[2022-11-10 07:33] LABS: Albumin 2.3 g/dL (3.4-5.0); Calcium 8.1 mg/dL (8.5-10.1); Potassium 3.9 mmol/L (3.5-5.1)
[2022-11-10 07:35] LABS: BUN/Creatinine Ratio 31.5
[2022-11-10 07:38] LABS: Bilirubin, Total 2.3 mg/dL (0.2-1.0); Total Protein 5.9 g/dL (6.4-8.2)
[2022-11-10] MEDS: PIPERACILLIN-TAZOB 3.375GM 100 ML IV SCH ×3 (09:03→21:33)
[2022-11-10] MEDS: FLUTICASONE PROP NASAL SPR 0.05 % (50MCG) 16GM EACHNOSTRI SCH ×2 (09:03→21:34)
[2022-11-10] MEDS: FAMOTIDINE (10MG/ML) 2ML VL IV SCH ×2 (09:04→21:33)
[2022-11-10] MEDS: FLORASTOR (S. BOULARDII) 250 MG CAP GT SCH ×2 (09:04→21:34)
[2022-11-10] MEDS: AMIODARONE HCL 200 MG TAB GT SCH ×2 (09:04→21:33)
[2022-11-10 09:33] LABS: Folate (Folic Acid) 19.92 ng/mL (5.38-24)
[2022-11-10] MEDS ORDERED: ALPRAZolam 0.25 MG TAB PO PRN (11:00)
[2022-11-10 11:18] LABS: Basophils # (auto) 0 10 ^3/uL (0-0.2); Basophils % (auto) 0.1 % (0.0-2.0); Eosinophils # (auto) 0 10 ^3/uL (0-0.8); Eosinophils % (auto) 0.1 % (0.0-7.0); Hematocrit 30.6 % (41.0-53.0); Hemoglobin 10.3 g/dL (13.5-17.5); Lymphocytes # (auto) 0.7 10 ^3/uL (0.4-5.4); Lymphocytes % (auto) 5.8 % (10.0-50.0); Mean Corpuscular Hemoglobin 30.2 pg (28.0-32.0); Mean Corpuscular Hgb Conc. 33.7 g/dL (32.0-36.0); Mean Corpuscular Volume 89.8 fL (80.0-100.0); Monocytes # (auto) 0.7 10 ^3/uL (0-1.3); Monocytes % (auto) 5.7 % (0.0-12.0); Neutrophils # (auto) 10.5 10 ^3/uL (1.6-8.6); Neutrophils % (auto) 88.3 % (37.0-80.0); Nucleated Red Blood Cells % 0.1 %; Red Blood Cells 3.41 10^6/uL (4.5-5.90); Red Cell Distribution Width 16.1 % (11.8-14.3); White Blood Cell 11.9 10^3/uL (4.4-10.8)
[2022-11-10] MEDS ORDERED: ALBUMIN 25% 100 ML IV ONE (12:45)
[2022-11-10] MEDS ORDERED: AZITHROMYCIN 500MG/ 250ML 250 ML IV ONE (12:45)
[2022-11-10] MEDS ORDERED: CYANOCOBALAMIN (B-12) 1000 MCG/1 ML VIAL IM ONE (12:45)
[2022-11-10] MEDS ORDERED: MULTIPLE VITAMINS W/ MINERALS TAB PO ONE (12:45)
[2022-11-10] MEDS ORDERED: FUROSEMIDE 40 MG/4 ML VIAL IV ONE (13:45)
[2022-11-10] MEDS: Ensure HIGH Protein Vanilla 8oz Bottle PO SCH ×2 (18:00→22:00)
[2022-11-10] MEDS: ALPRAZolam 0.25 MG TAB PO SCH (21:33)
[2022-11-10] MEDS: SODIUM CHLOR 0.9% PF (SALINE LOCK) 10ML VIAL/SYR IV SCH (21:35)
[2022-11-11] VITALS (21 sets, daily range): BP systolic 61–131; BP diastolic 32–78
[2022-11-11] MEDS: IPRATROPIUM BROM 0.5 MG/2.5ML INH SOL NEB SCH ×4 (00:49→18:05)
[2022-11-11] MEDS: ALBUTEROL SULF 2.5 MG/0.5ML(0.5%) NEB SOLN NEB SCH ×4 (00:49→18:05)
[2022-11-11] MEDS: FREE WATER GT SCH ×7 (02:00→21:48)
[2022-11-11] MEDS: metroNIDAZOLE 500MG/100ML 100 ML IV SCH (04:23)
[2022-11-11] MEDS: VANCOMYCIN HCL 125MG/5ML ORAL SOL PO SCH (05:51)
[2022-11-11] MEDS: FUROSEMIDE 20 MG/2 ML VIAL IV SCH (05:51)
[2022-11-11] MEDS: PIPERACILLIN-TAZOB 3.375GM 100 ML IV SCH ×3 (05:51→21:48)
[2022-11-11] MEDS: Ensure HIGH Protein Vanilla 8oz Bottle PO SCH ×2 (05:52→12:00)
[2022-11-11 06:20] LABS: Basophils # (auto) 0 10 ^3/uL (0-0.2); Basophils % (auto) 0.2 % (0.0-2.0); Eosinophils # (auto) 0 10 ^3/uL (0-0.8); Eosinophils % (auto) 0.2 % (0.0-7.0); Hematocrit 27.3 % (41.0-53.0); Hemoglobin 9.2 g/dL (13.5-17.5); Lymphocytes # (auto) 1.2 10 ^3/uL (0.4-5.4); Lymphocytes % (auto) 10.2 % (10.0-50.0); Mean Corpuscular Hemoglobin 30.1 pg (28.0-32.0); Mean Corpuscular Hgb Conc. 33.6 g/dL (32.0-36.0); Mean Corpuscular Volume 89.7 fL (80.0-100.0); Monocytes # (auto) 0.8 10 ^3/uL (0-1.3); Monocytes % (auto) 6.9 % (0.0-12.0); Neutrophils # (auto) 9.6 10 ^3/uL (1.6-8.6); Neutrophils % (auto) 82.5 % (37.0-80.0); Nucleated Red Blood Cells % 0.1 %; Red Blood Cells 3.04 10^6/uL (4.5-5.90); Red Cell Distribution Width 15.9 % (11.8-14.3); White Blood Cell 11.6 10^3/uL (4.4-10.8)
[2022-11-11 06:53] LABS: BUN/Creatinine Ratio 33.9; Bilirubin, Total 1.6 mg/dL (0.2-1.0); Total Protein 4.3 g/dL (6.4-8.2)
[2022-11-11 07:24] LABS: Potassium 2.7 mmol/L (3.5-5.1)
[2022-11-11] MEDS ORDERED: POTASSIUM CHL 20 Meq TABLET PO ONE (08:45)
[2022-11-11] MEDS: FAMOTIDINE (10MG/ML) 2ML VL IV SCH (08:45)
[2022-11-11] MEDS ORDERED: POTASSIUM EFFERVESENT TAB 25 MEQ GT ONE (08:45)
[2022-11-11] MEDS ORDERED: MIDODRINE HCL 10 MG TAB PO ONE (08:45)
[2022-11-11] MEDS ORDERED: POTASSIUM CHL 20MEQ/100ML 100 ML IV SCH (08:45)
[2022-11-11] MEDS ORDERED: PHENYLEPHRINE IV 250 ML IV SCH (08:45)
[2022-11-11] MEDS ORDERED: POTASSIUM CHLORIDE 40 MEQ, LIDOCAINE 1% (LOCAL ANESTH.) 4 ML in SODIUM CHL 0.9% 250 ML IV ONE ×2 (09:00→09:15)
[2022-11-11] MEDS ORDERED: SODIUM CHLORIDE 0.9% 1,000 ML IV SCH (09:15)
[2022-11-11] MEDS ORDERED: SODIUM CHLORIDE 0.9% 1,000 ML IV ONE (09:15)
[2022-11-11] MEDS: MAGNESIUM SULFATE 1GM/100ML 100 ML IV SCH ×2 (09:39→10:41)
[2022-11-11] MEDS: FLUTICASONE PROP NASAL SPR 0.05 % (50MCG) 16GM EACHNOSTRI SCH ×2 (09:40→22:00)
[2022-11-11] MEDS: FLORASTOR (S. BOULARDII) 250 MG CAP GT SCH ×2 (09:40→21:47)
[2022-11-11] MEDS: CYANOCOBALAMIN (B-12) 1000 MCG/1 ML VIAL IM SCH (09:42)
[2022-11-11] MEDS: MULTIPLE VITAMINS W/ MINERALS TAB PO SCH (09:42)
[2022-11-11] MEDS: AMIODARONE HCL 200 MG TAB GT SCH ×2 (09:46→21:47)
[2022-11-11] MEDS: PANTOPRAZOLE 40 MG/10 ML VIAL INJ IV SCH (09:50)
[2022-11-11] MEDS: MIDODRINE HCL 10 MG TAB PO SCH ×2 (12:04→18:05)
[2022-11-11] MEDS: AZITHROMYCIN 500MG/ 250ML 250 ML IV SCH (12:04)
[2022-11-11] MEDS: SODIUM CHLOR 0.9% PF (SALINE LOCK) 10ML VIAL/SYR IV SCH ×2 (12:04→21:48)
[2022-11-11 14:48] LABS: Basophils # (auto) 0 10 ^3/uL (0-0.2); Basophils % (auto) 0.1 % (0.0-2.0); Eosinophils # (auto) 0 10 ^3/uL (0-0.8); Eosinophils % (auto) 0.2 % (0.0-7.0); Hematocrit 34.3 % (41.0-53.0); Hemoglobin 11.2 g/dL (13.5-17.5); Lymphocytes # (auto) 0.9 10 ^3/uL (0.4-5.4); Lymphocytes % (auto) 6.5 % (10.0-50.0); Mean Corpuscular Hemoglobin 29.9 pg (28.0-32.0); Mean Corpuscular Hgb Conc. 32.6 g/dL (32.0-36.0); Mean Corpuscular Volume 91.7 fL (80.0-100.0); Monocytes # (auto) 0.9 10 ^3/uL (0-1.3); Monocytes % (auto) 6.6 % (0.0-12.0); Neutrophils # (auto) 11.4 10 ^3/uL (1.6-8.6); Neutrophils % (auto) 86.6 % (37.0-80.0); Nucleated Red Blood Cells % 0.1 %; Red Blood Cells 3.74 10^6/uL (4.5-5.90); Red Cell Distribution Width 16.4 % (11.8-14.3); White Blood Cell 13.2 10^3/uL (4.4-10.8)
[2022-11-11 15:21] LABS: BUN/Creatinine Ratio 24.1; Calcium 7.9 mg/dL (8.5-10.1); Magnesium 2.6 mg/dL (1.6-2.6); Potassium 3.7 mmol/L (3.5-5.1)
[2022-11-11] MEDS: ALPRAZolam 0.25 MG TAB PO SCH (21:47)
[2022-11-11] MEDS: Pro-Stat SF 30ml Vanilla GT SCH (21:48)
[2022-11-12] VITALS (19 sets, daily range): BP systolic 86–132; BP diastolic 47–75
[2022-11-12] MEDS: IPRATROPIUM BROM 0.5 MG/2.5ML INH SOL NEB SCH ×4 (00:26→18:29)
[2022-11-12] MEDS: ALBUTEROL SULF 2.5 MG/0.5ML(0.5%) NEB SOLN NEB SCH ×4 (00:26→18:29)
[2022-11-12] MEDS: QUEtiapine FUMARATE 25 MG TAB GT PRN (01:40)
[2022-11-12] MEDS: FREE WATER GT SCH ×6 (01:42→23:44)
[2022-11-12 04:09] LABS: Basophils # (auto) 0 10 ^3/uL (0-0.2); Basophils % (auto) 0.1 % (0.0-2.0); Eosinophils # (auto) 0 10 ^3/uL (0-0.8); Eosinophils % (auto) 0.1 % (0.0-7.0); Hematocrit 32.8 % (41.0-53.0); Lymphocytes # (auto) 0.7 10 ^3/uL (0.4-5.4); Lymphocytes % (auto) 5.5 % (10.0-50.0); Mean Corpuscular Hemoglobin 30.3 pg (28.0-32.0); Mean Corpuscular Hgb Conc. 33.5 g/dL (32.0-36.0); Mean Corpuscular Volume 90.4 fL (80.0-100.0); Monocytes # (auto) 0.9 10 ^3/uL (0-1.3); Monocytes % (auto) 6.5 % (0.0-12.0); Neutrophils # (auto) 11.5 10 ^3/uL (1.6-8.6); Neutrophils % (auto) 87.8 % (37.0-80.0); Nucleated Red Blood Cells % 0.1 %; Red Blood Cells 3.63 10^6/uL (4.5-5.90); Red Cell Distribution Width 15.9 % (11.8-14.3); White Blood Cell 13.1 10^3/uL (4.4-10.8)
[2022-11-12 04:23] LABS: Albumin 2.3 g/dL (3.4-5.0); BUN/Creatinine Ratio 31.3; Potassium 3.4 mmol/L (3.5-5.1)
[2022-11-12 04:26] LABS: Bilirubin, Total 1.5 mg/dL (0.2-1.0); Total Protein 5.8 g/dL (6.4-8.2)
[2022-11-12] MEDS: MIDODRINE HCL 10 MG TAB PO SCH ×3 (06:00→17:40)
[2022-11-12] MEDS: PIPERACILLIN-TAZOB 3.375GM 100 ML IV SCH ×3 (06:00→23:36)
[2022-11-12] MEDS: FLUTICASONE PROP NASAL SPR 0.05 % (50MCG) 16GM EACHNOSTRI SCH ×2 (10:00→23:44)
[2022-11-12] MEDS: Pro-Stat SF 30ml Vanilla GT SCH ×2 (10:00→22:00)
[2022-11-12] MEDS: AMIODARONE HCL 200 MG TAB GT SCH ×2 (10:05→23:45)
[2022-11-12] MEDS: PANTOPRAZOLE 40 MG/10 ML VIAL INJ IV SCH (10:05)
[2022-11-12] MEDS: MULTIPLE VITAMINS W/ MINERALS TAB PO SCH (10:05)
[2022-11-12] MEDS: FLORASTOR (S. BOULARDII) 250 MG CAP GT SCH ×2 (10:06→23:45)
[2022-11-12] MEDS: AZITHROMYCIN 500MG/ 250ML 250 ML IV SCH (10:06)
[2022-11-12] MEDS: CYANOCOBALAMIN (B-12) 1000 MCG/1 ML VIAL IM SCH (10:06)
[2022-11-12] MEDS: SODIUM CHLOR 0.9% PF (SALINE LOCK) 10ML VIAL/SYR IV SCH ×2 (10:23→23:45)
[2022-11-12] MEDS ORDERED: IPRATROPIUM BROM 0.5 MG/2.5ML INH SOL ONE (11:50)
[2022-11-12] MEDS ORDERED: ALBUTEROL MEDNEB 2.5 mg/3ml NEB ONE (11:50)
[2022-11-12] MEDS: ACETAMINOPHEN 650 mg PER 20.3 mL UD GT PRN (12:21)
[2022-11-12] MEDS ORDERED: GASTROGRAFIN 30 ML SOL ONE ×2 (13:22→14:34)
[2022-11-12] MEDS: FUROSEMIDE 20 MG/2 ML VIAL IV SCH (17:39)
[2022-11-12] MEDS: ALPRAZolam 0.25 MG TAB PO SCH (23:45)
[2022-11-13] MEDS: ALBUTEROL SULF 2.5 MG/0.5ML(0.5%) NEB SOLN NEB SCH ×2 (00:42→07:54)
[2022-11-13] MEDS: IPRATROPIUM BROM 0.5 MG/2.5ML INH SOL NEB SCH ×4 (00:42→19:45)
[2022-11-13] MEDS: FREE WATER GT SCH ×6 (03:04→22:52)
[2022-11-13 05:00] VITALS: BP 108/63
[2022-11-13 05:59] LABS: Basophils # (auto) 0.1 10 ^3/uL (0-0.2); Basophils % (auto) 0.8 % (0.0-2.0); Eosinophils # (auto) 0.1 10 ^3/uL (0-0.8); Eosinophils % (auto) 1.4 % (0.0-7.0); Hematocrit 35.5 % (41.0-53.0); Hemoglobin 11.8 g/dL (13.5-17.5); Lymphocytes # (auto) 1.3 10 ^3/uL (0.4-5.4); Lymphocytes % (auto) 12.9 % (10.0-50.0); Mean Corpuscular Hemoglobin 30.8 pg (28.0-32.0); Mean Corpuscular Hgb Conc. 33.3 g/dL (32.0-36.0); Mean Corpuscular Volume 92.5 fL (80.0-100.0); Monocytes # (auto) 0.9 10 ^3/uL (0-1.3); Monocytes % (auto) 8.5 % (0.0-12.0); Neutrophils # (auto) 7.7 10 ^3/uL (1.6-8.6); Neutrophils % (auto) 76.4 % (37.0-80.0); Nucleated Red Blood Cells % 0.2 %; Red Blood Cells 3.84 10^6/uL (4.5-5.90); Red Cell Distribution Width 16.6 % (11.8-14.3)
[2022-11-13] MEDS: PIPERACILLIN-TAZOB 3.375GM 100 ML IV SCH ×3 (05:59→22:00)
[2022-11-13] MEDS: FUROSEMIDE 20 MG/2 ML VIAL IV SCH ×2 (05:59→18:00)
[2022-11-13] MEDS: MIDODRINE HCL 10 MG TAB PO SCH ×3 (05:59→18:12)
[2022-11-13] MEDS ORDERED: ALBUTEROL MEDNEB 2.5 mg/3ml NEB ONE ×2 (06:10→10:36)
[2022-11-13 07:26] LABS: Albumin 2.6 g/dL (3.4-5.0); Calcium 8.4 mg/dL (8.5-10.1)
[2022-11-13 07:30] LABS: Bilirubin, Total 1.5 mg/dL (0.2-1.0); Total Protein 6.2 g/dL (6.4-8.2)
[2022-11-13 08:16] LABS: Potassium 3.3 mmol/L (3.5-5.1)
[2022-11-13 09:00] VITALS: BP 117/61
[2022-11-13] MEDS: CYANOCOBALAMIN (B-12) 1000 MCG/1 ML VIAL IM SCH (10:31)
[2022-11-13] MEDS: FLORASTOR (S. BOULARDII) 250 MG CAP GT SCH ×2 (10:32→22:51)
[2022-11-13] MEDS: MULTIPLE VITAMINS W/ MINERALS TAB PO SCH (10:32)
[2022-11-13] MEDS: AMIODARONE HCL 200 MG TAB GT SCH ×2 (10:33→22:51)
[2022-11-13] MEDS: PANTOPRAZOLE 40 MG/10 ML VIAL INJ IV SCH (10:36)
[2022-11-13] MEDS: FLUTICASONE PROP NASAL SPR 0.05 % (50MCG) 16GM EACHNOSTRI SCH ×2 (10:44→23:06)
[2022-11-13] MEDS: AZITHROMYCIN 500MG/ 250ML 250 ML IV SCH (10:52)
[2022-11-13] MEDS ORDERED: ALBUTEROL MEDNEB 2.5 mg/3ml NEB NEB PRN (11:15)
[2022-11-13] MEDS: ALBUTEROL MEDNEB 2.5 mg/3ml NEB NEB SCH ×2 (12:39→19:47)
[2022-11-13] MEDS: Pro-Stat SF 30ml Vanilla GT SCH ×2 (13:58→22:52)
[2022-11-13] MEDS: SODIUM CHLOR 0.9% PF (SALINE LOCK) 10ML VIAL/SYR IV SCH ×2 (13:59→22:52)
[2022-11-13 14:30] VITALS: BP 117/61
[2022-11-13 16:07] LABS: BUN/Creatinine Ratio 24.3
[2022-11-13] MEDS ORDERED: POTASSIUM EFFERVESENT TAB 25 MEQ GT ONE (16:30)
[2022-11-13] MEDS ORDERED: ENOXAPARIN SOD 40 MG/0.4 ML SYRINGE SC ONE (16:30)
[2022-11-13 17:00] VITALS: BP 108/67
[2022-11-13 22:00] VITALS: BP 103/56
[2022-11-13] MEDS: ACETAMINOPHEN 650 mg PER 20.3 mL UD GT PRN (22:51)
[2022-11-13] MEDS: ALPRAZolam 0.25 MG TAB PO SCH (22:51)
[2022-11-14] MEDS: ALBUTEROL MEDNEB 2.5 mg/3ml NEB NEB SCH ×4 (00:46→18:54)
[2022-11-14] MEDS: IPRATROPIUM BROM 0.5 MG/2.5ML INH SOL NEB SCH ×4 (00:46→18:53)
[2022-11-14] MEDS: FREE WATER GT SCH ×6 (02:00→21:55)
[2022-11-14] MEDS: QUEtiapine FUMARATE 25 MG TAB GT PRN (02:03)
[2022-11-14 05:00] VITALS: BP 107/63
[2022-11-14] MEDS: FUROSEMIDE 20 MG/2 ML VIAL IV SCH (05:25)
[2022-11-14] MEDS: PIPERACILLIN-TAZOB 3.375GM 100 ML IV SCH ×3 (05:36→21:52)
[2022-11-14] MEDS: MIDODRINE HCL 10 MG TAB PO SCH ×3 (06:00→18:16)
[2022-11-14 07:56] LABS: Basophils # (auto) 0 10 ^3/uL (0-0.2); Basophils % (auto) 0.3 % (0.0-2.0); Eosinophils # (auto) 0.2 10 ^3/uL (0-0.8); Eosinophils % (auto) 1.8 % (0.0-7.0); Hematocrit 34.7 % (41.0-53.0); Hemoglobin 11.5 g/dL (13.5-17.5); Lymphocytes # (auto) 1.4 10 ^3/uL (0.4-5.4); Lymphocytes % (auto) 15.1 % (10.0-50.0); Mean Corpuscular Hemoglobin 30.4 pg (28.0-32.0); Mean Corpuscular Hgb Conc. 33.2 g/dL (32.0-36.0); Mean Corpuscular Volume 91.6 fL (80.0-100.0); Monocytes % (auto) 10.7 % (0.0-12.0); Neutrophils # (auto) 6.8 10 ^3/uL (1.6-8.6); Neutrophils % (auto) 72.1 % (37.0-80.0); Nucleated Red Blood Cells % 0.3 %; Red Blood Cells 3.78 10^6/uL (4.5-5.90); Red Cell Distribution Width 16.2 % (11.8-14.3); White Blood Cell 9.4 10^3/uL (4.4-10.8)
[2022-11-14 07:57] LABS: Albumin 2.4 g/dL (3.4-5.0); Potassium 4.1 mmol/L (3.5-5.1)
[2022-11-14 08:02] LABS: BUN/Creatinine Ratio 29.1; Total Protein 5.1 g/dL (6.4-8.2)
[2022-11-14 09:00] VITALS: BP 103/65
[2022-11-14] MEDS: MULTIPLE VITAMINS W/ MINERALS TAB PO SCH (09:00)
[2022-11-14] MEDS: FLORASTOR (S. BOULARDII) 250 MG CAP GT SCH ×2 (09:01→21:55)
[2022-11-14] MEDS: PANTOPRAZOLE 40 MG/10 ML VIAL INJ IV SCH (09:02)
[2022-11-14] MEDS: AMIODARONE HCL 200 MG TAB GT SCH ×2 (09:02→21:55)
[2022-11-14 09:05] LABS: INR 1.05 (0.9-1.15); Partial Thromboplastin Time 31.6 sec (24.6-33.4)
[2022-11-14] MEDS: FLUTICASONE PROP NASAL SPR 0.05 % (50MCG) 16GM EACHNOSTRI SCH ×2 (09:09→22:11)
[2022-11-14] MEDS: CYANOCOBALAMIN (B-12) 1000 MCG/1 ML VIAL IM SCH (09:09)
[2022-11-14] MEDS ORDERED: FUROSEMIDE 40 MG/4 ML VIAL IV ONE (10:00)
[2022-11-14] MEDS ORDERED: ENOXAPARIN SOD 40 MG/0.4 ML SYRINGE SC SCH (10:00)
[2022-11-14] MEDS ORDERED: ENOXAPARIN SOD 60 MG/0.6 ML SYRINGE SC SCH (10:00)
[2022-11-14] MEDS: Pro-Stat SF 30ml Vanilla GT SCH ×2 (11:51→21:55)
[2022-11-14] MEDS: AZITHROMYCIN 250 MG TAB PO SCH (11:51)
[2022-11-14] MEDS: SODIUM CHLOR 0.9% PF (SALINE LOCK) 10ML VIAL/SYR IV SCH ×2 (11:54→21:55)
[2022-11-14 13:00] VITALS: BP 99/55
[2022-11-14 16:48] VITALS: BP 90/52
[2022-11-14] MEDS: ENOXAPARIN SOD 40 MG/0.4 ML SYRINGE SC SCH (21:54)
[2022-11-14] MEDS: ALPRAZolam 0.25 MG TAB PO SCH (21:54)
[2022-11-14 22:00] VITALS: BP 102/59
[2022-11-15] MEDS: ALBUTEROL MEDNEB 2.5 mg/3ml NEB NEB SCH ×4 (00:04→17:59)
[2022-11-15] MEDS: IPRATROPIUM BROM 0.5 MG/2.5ML INH SOL NEB SCH ×4 (00:04→17:59)
[2022-11-15] MEDS: QUEtiapine FUMARATE 25 MG TAB GT PRN ×3 (00:24→21:57)
[2022-11-15] MEDS: FREE WATER GT SCH ×6 (01:44→21:52)
[2022-11-15 05:00] VITALS: BP 113/61
[2022-11-15] MEDS: PIPERACILLIN-TAZOB 3.375GM 100 ML IV SCH ×3 (05:38→21:53)
[2022-11-15] MEDS: MIDODRINE HCL 10 MG TAB PO SCH ×3 (05:38→18:03)
[2022-11-15 06:10] LABS: Basophils # (auto) 0 10 ^3/uL (0-0.2); Basophils % (auto) 0.2 % (0.0-2.0); Eosinophils # (auto) 0.2 10 ^3/uL (0-0.8); Eosinophils % (auto) 1.9 % (0.0-7.0); Hematocrit 36.2 % (41.0-53.0); Hemoglobin 11.5 g/dL (13.5-17.5); Lymphocytes # (auto) 1.5 10 ^3/uL (0.4-5.4); Lymphocytes % (auto) 15.9 % (10.0-50.0); Mean Corpuscular Hemoglobin 29.9 pg (28.0-32.0); Mean Corpuscular Hgb Conc. 31.8 g/dL (32.0-36.0); Monocytes # (auto) 1.2 10 ^3/uL (0-1.3); Monocytes % (auto) 13.1 % (0.0-12.0); Neutrophils # (auto) 6.4 10 ^3/uL (1.6-8.6); Neutrophils % (auto) 68.9 % (37.0-80.0); Nucleated Red Blood Cells % 0.1 %; Red Blood Cells 3.85 10^6/uL (4.5-5.90); Red Cell Distribution Width 16.4 % (11.8-14.3); White Blood Cell 9.3 10^3/uL (4.4-10.8)
[2022-11-15 06:47] LABS: Potassium 3.7 mmol/L (3.5-5.1)
[2022-11-15 07:04] LABS: Albumin 2.4 g/dL (3.4-5.0); BUN/Creatinine Ratio 23.1; Calcium 8.2 mg/dL (8.5-10.1)
[2022-11-15 08:30] VITALS: BP 102/59
[2022-11-15] MEDS ORDERED: FUROSEMIDE 40 MG/4 ML VIAL IV ONE (09:15)
[2022-11-15] MEDS: PANTOPRAZOLE 40 MG/10 ML VIAL INJ IV SCH (10:15)
[2022-11-15] MEDS: Pro-Stat SF 30ml Vanilla GT SCH ×2 (10:15→21:54)
[2022-11-15] MEDS: AMIODARONE HCL 200 MG TAB GT SCH ×2 (10:15→21:52)
[2022-11-15] MEDS: FLORASTOR (S. BOULARDII) 250 MG CAP GT SCH ×2 (10:15→21:53)
[2022-11-15] MEDS: AZITHROMYCIN 250 MG TAB PO SCH (10:15)
[2022-11-15] MEDS: CYANOCOBALAMIN (B-12) 1000 MCG/1 ML VIAL IM SCH (10:18)
[2022-11-15] MEDS: ENOXAPARIN SOD 40 MG/0.4 ML SYRINGE SC SCH (10:25)
[2022-11-15] MEDS: FLUTICASONE PROP NASAL SPR 0.05 % (50MCG) 16GM EACHNOSTRI SCH ×2 (11:59→21:52)
[2022-11-15] MEDS: SODIUM CHLOR 0.9% PF (SALINE LOCK) 10ML VIAL/SYR IV SCH ×2 (12:02→21:53)
[2022-11-15] MEDS: MULTIPLE VITAMINS W/ MINERALS TAB PO SCH (12:04)
[2022-11-15 12:30] VITALS: BP 89/57
[2022-11-15 14:11] VITALS: BP 102/73
[2022-11-15 17:03] VITALS: BP 104/70
[2022-11-15] MEDS: ALPRAZolam 0.25 MG TAB PO SCH (21:53)
[2022-11-15] MEDS: ENOXAPARIN SOD 60 MG/0.6 ML SYRINGE SC SCH (21:55)
[2022-11-16] MEDS: ALBUTEROL MEDNEB 2.5 mg/3ml NEB NEB SCH ×5 (00:44→23:56)
[2022-11-16] MEDS: IPRATROPIUM BROM 0.5 MG/2.5ML INH SOL NEB SCH ×5 (00:44→23:56)
[2022-11-16] MEDS: FREE WATER GT SCH ×6 (02:41→22:15)
[2022-11-16 05:03] VITALS: BP 122/71
[2022-11-16] MEDS: PIPERACILLIN-TAZOB 3.375GM 100 ML IV SCH ×3 (05:31→22:28)
[2022-11-16] MEDS: MIDODRINE HCL 10 MG TAB PO SCH ×3 (05:32→17:48)
[2022-11-16 06:06] LABS: Basophils # (auto) 0.1 10 ^3/uL (0-0.2); Basophils % (auto) 0.6 % (0.0-2.0); Eosinophils # (auto) 0.2 10 ^3/uL (0-0.8); Eosinophils % (auto) 2.3 % (0.0-7.0); Hematocrit 34.8 % (41.0-53.0); Hemoglobin 11.3 g/dL (13.5-17.5); Lymphocytes # (auto) 1.6 10 ^3/uL (0.4-5.4); Lymphocytes % (auto) 16.5 % (10.0-50.0); Mean Corpuscular Hemoglobin 30.2 pg (28.0-32.0); Mean Corpuscular Hgb Conc. 32.4 g/dL (32.0-36.0); Mean Corpuscular Volume 93.2 fL (80.0-100.0); Monocytes # (auto) 1.1 10 ^3/uL (0-1.3); Monocytes % (auto) 11.5 % (0.0-12.0); Neutrophils # (auto) 6.8 10 ^3/uL (1.6-8.6); Neutrophils % (auto) 69.1 % (37.0-80.0); Nucleated Red Blood Cells % 0.1 %; Red Blood Cells 3.73 10^6/uL (4.5-5.90); Red Cell Distribution Width 16.8 % (11.8-14.3); White Blood Cell 9.8 10^3/uL (4.4-10.8)
[2022-11-16 06:27] LABS: Potassium 4.2 mmol/L (3.5-5.1)
[2022-11-16 06:34] LABS: Albumin 2.3 g/dL (3.4-5.0); BUN/Creatinine Ratio 26.7; Calcium 8.4 mg/dL (8.5-10.1)
[2022-11-16 06:36] LABS: Total Protein 6.1 g/dL (6.4-8.2)
[2022-11-16 08:30] VITALS: BP 101/59
[2022-11-16] MEDS: PANTOPRAZOLE 40 MG/10 ML VIAL INJ IV SCH (08:37)
[2022-11-16] MEDS: FLORASTOR (S. BOULARDII) 250 MG CAP GT SCH ×2 (08:37→22:15)
[2022-11-16] MEDS: CYANOCOBALAMIN (B-12) 1000 MCG/1 ML VIAL IM SCH (08:37)
[2022-11-16] MEDS: AZITHROMYCIN 250 MG TAB PO SCH (08:38)
[2022-11-16] MEDS: AMIODARONE HCL 200 MG TAB GT SCH ×2 (08:38→22:15)
[2022-11-16] MEDS: MULTIPLE VITAMINS W/ MINERALS TAB PO SCH (08:39)
[2022-11-16] MEDS: SODIUM CHLOR 0.9% PF (SALINE LOCK) 10ML VIAL/SYR IV SCH ×2 (08:39→22:16)
[2022-11-16] MEDS: ENOXAPARIN SOD 60 MG/0.6 ML SYRINGE SC SCH ×2 (08:39→22:16)
[2022-11-16] MEDS: Pro-Stat SF 30ml Vanilla GT SCH ×2 (08:42→22:16)
[2022-11-16] MEDS: FLUTICASONE PROP NASAL SPR 0.05 % (50MCG) 16GM EACHNOSTRI SCH ×2 (08:42→22:14)
[2022-11-16] MEDS: QUEtiapine FUMARATE 25 MG TAB GT PRN ×2 (09:58→22:28)
[2022-11-16 13:00] VITALS: BP 112/62
[2022-11-16 17:00] VITALS: BP 102/63
[2022-11-16 22:11] VITALS: BP 128/89
[2022-11-16] MEDS: ALPRAZolam 0.25 MG TAB PO SCH (22:16)
[2022-11-17] MEDS: FREE WATER GT SCH ×6 (02:24→22:14)
[2022-11-17] MEDS: ACETAMINOPHEN 650 mg PER 20.3 mL UD GT PRN (03:00)
[2022-11-17 04:14] VITALS: BP 100/58
[2022-11-17] MEDS: PIPERACILLIN-TAZOB 3.375GM 100 ML IV SCH ×3 (05:25→22:16)
[2022-11-17] MEDS: MIDODRINE HCL 10 MG TAB PO SCH ×3 (05:39→17:38)
[2022-11-17] MEDS: IPRATROPIUM BROM 0.5 MG/2.5ML INH SOL NEB SCH ×3 (06:21→20:25)
[2022-11-17] MEDS: ALBUTEROL MEDNEB 2.5 mg/3ml NEB NEB SCH ×3 (06:21→20:25)
[2022-11-17 06:24] LABS: Basophils # (auto) 0 10 ^3/uL (0-0.2); Basophils % (auto) 0.5 % (0.0-2.0); Eosinophils # (auto) 0.2 10 ^3/uL (0-0.8); Eosinophils % (auto) 2.5 % (0.0-7.0); Hematocrit 35.4 % (41.0-53.0); Hemoglobin 11.5 g/dL (13.5-17.5); Lymphocytes # (auto) 1.4 10 ^3/uL (0.4-5.4); Lymphocytes % (auto) 17.3 % (10.0-50.0); Mean Corpuscular Hemoglobin 30.3 pg (28.0-32.0); Mean Corpuscular Hgb Conc. 32.5 g/dL (32.0-36.0); Mean Corpuscular Volume 93.4 fL (80.0-100.0); Monocytes # (auto) 1.2 10 ^3/uL (0-1.3); Monocytes % (auto) 14.4 % (0.0-12.0); Neutrophils # (auto) 5.4 10 ^3/uL (1.6-8.6); Neutrophils % (auto) 65.3 % (37.0-80.0); Nucleated Red Blood Cells % 0.1 %; Red Blood Cells 3.79 10^6/uL (4.5-5.90); Red Cell Distribution Width 16.7 % (11.8-14.3); White Blood Cell 8.2 10^3/uL (4.4-10.8)
[2022-11-17 06:51] LABS: Albumin 2.3 g/dL (3.4-5.0); BUN/Creatinine Ratio 23.6; Calcium 8.5 mg/dL (8.5-10.1)
[2022-11-17 06:54] LABS: Bilirubin, Total 0.8 mg/dL (0.2-1.0); Total Protein 6.1 g/dL (6.4-8.2)
[2022-11-17 08:30] VITALS: BP 114/66
[2022-11-17 09:00] VITALS: BP 114/66
[2022-11-17] MEDS: FLUTICASONE PROP NASAL SPR 0.05 % (50MCG) 16GM EACHNOSTRI SCH ×2 (09:00→22:14)
[2022-11-17] MEDS: FLORASTOR (S. BOULARDII) 250 MG CAP GT SCH ×2 (09:01→22:16)
[2022-11-17] MEDS: CYANOCOBALAMIN (B-12) 1000 MCG/1 ML VIAL IM SCH (09:01)
[2022-11-17] MEDS: SODIUM CHLOR 0.9% PF (SALINE LOCK) 10ML VIAL/SYR IV SCH ×2 (09:01→22:16)
[2022-11-17] MEDS: PANTOPRAZOLE 40 MG/10 ML VIAL INJ IV SCH (09:01)
[2022-11-17] MEDS: AZITHROMYCIN 250 MG TAB PO SCH (09:02)
[2022-11-17] MEDS: MULTIPLE VITAMINS W/ MINERALS TAB PO SCH (09:03)
[2022-11-17] MEDS: ENOXAPARIN SOD 60 MG/0.6 ML SYRINGE SC SCH (09:03)
[2022-11-17] MEDS: AMIODARONE HCL 200 MG TAB GT SCH ×2 (09:15→22:15)
[2022-11-17] MEDS: Pro-Stat SF 30ml Vanilla GT SCH ×2 (09:17→22:16)
[2022-11-17 13:00] VITALS: BP 100/60
[2022-11-17] MEDS ORDERED: FUROSEMIDE 40 MG/4 ML VIAL IV ONE (14:00)
[2022-11-17] MEDS: QUEtiapine FUMARATE 25 MG TAB GT PRN (16:38)
[2022-11-17 17:00] VITALS: BP 113/67
[2022-11-17 22:00] VITALS: BP 114/70
[2022-11-17] MEDS ORDERED: ENOXAPARIN SOD 80 MG/0.8ML SYRINGE SC SCH (22:00)
[2022-11-17] MEDS: ALPRAZolam 0.25 MG TAB PO SCH (22:17)
[2022-11-17] MEDS: ENOXAPARIN SOD 80 MG/0.8ML SYRINGE SC SCH (22:17)
[2022-11-18] MEDS: FREE WATER GT SCH ×6 (02:13→22:17)
[2022-11-18] MEDS: IPRATROPIUM BROM 0.5 MG/2.5ML INH SOL NEB SCH ×4 (04:56→19:03)
[2022-11-18] MEDS: ALBUTEROL MEDNEB 2.5 mg/3ml NEB NEB SCH ×4 (04:56→19:03)
[2022-11-18 05:00] VITALS: BP 119/65
[2022-11-18] MEDS: PIPERACILLIN-TAZOB 3.375GM 100 ML IV SCH ×3 (06:00→22:18)
[2022-11-18] MEDS: MIDODRINE HCL 10 MG TAB PO SCH ×3 (06:01→17:36)
[2022-11-18 07:50] VITALS: BP 115/61
[2022-11-18 08:30] VITALS: BP 115/61
[2022-11-18] MEDS: FLORASTOR (S. BOULARDII) 250 MG CAP GT SCH ×2 (09:42→22:17)
[2022-11-18] MEDS: AMIODARONE HCL 200 MG TAB GT SCH ×2 (09:43→22:17)
[2022-11-18] MEDS: MULTIPLE VITAMINS W/ MINERALS TAB PO SCH (09:43)
[2022-11-18] MEDS: SODIUM CHLOR 0.9% PF (SALINE LOCK) 10ML VIAL/SYR IV SCH ×2 (09:43→21:38)
[2022-11-18] MEDS: AZITHROMYCIN 250 MG TAB PO SCH (09:43)
[2022-11-18] MEDS: PANTOPRAZOLE 40 MG/10 ML VIAL INJ IV SCH (09:43)
[2022-11-18] MEDS: FLUTICASONE PROP NASAL SPR 0.05 % (50MCG) 16GM EACHNOSTRI SCH ×2 (09:44→22:18)
[2022-11-18] MEDS: CYANOCOBALAMIN (B-12) 1000 MCG/1 ML VIAL IM SCH (09:44)
[2022-11-18] MEDS: Pro-Stat SF 30ml Vanilla GT SCH ×2 (09:44→22:17)
[2022-11-18] MEDS: ENOXAPARIN SOD 80 MG/0.8ML SYRINGE SC SCH ×2 (09:44→22:18)
[2022-11-18 11:21] LABS: Basophils # (auto) 0 10 ^3/uL (0-0.2); Basophils % (auto) 0.3 % (0.0-2.0); Eosinophils # (auto) 0.2 10 ^3/uL (0-0.8); Hematocrit 38.1 % (41.0-53.0); Hemoglobin 12.2 g/dL (13.5-17.5); Lymphocytes # (auto) 1.2 10 ^3/uL (0.4-5.4); Lymphocytes % (auto) 13.6 % (10.0-50.0); Mean Corpuscular Hemoglobin 29.8 pg (28.0-32.0); Mean Corpuscular Volume 93.3 fL (80.0-100.0); Monocytes # (auto) 1.2 10 ^3/uL (0-1.3); Monocytes % (auto) 13.5 % (0.0-12.0); Neutrophils # (auto) 6.5 10 ^3/uL (1.6-8.6); Neutrophils % (auto) 70.6 % (37.0-80.0); Nucleated Red Blood Cells % 0.1 %; Red Blood Cells 4.08 10^6/uL (4.5-5.90); Red Cell Distribution Width 16.6 % (11.8-14.3); White Blood Cell 9.2 10^3/uL (4.4-10.8)
[2022-11-18 11:47] LABS: Albumin 2.7 g/dL (3.4-5.0); Calcium 8.3 mg/dL (8.5-10.1); Potassium 3.8 mmol/L (3.5-5.1)
[2022-11-18 11:50] LABS: Bilirubin, Total 0.9 mg/dL (0.2-1.0); Total Protein 6.8 g/dL (6.4-8.2)
[2022-11-18 12:30] VITALS: BP 101/58
[2022-11-18 16:30] VITALS: BP 94/58
[2022-11-18] MEDS: QUEtiapine FUMARATE 25 MG TAB GT PRN (17:34)
[2022-11-18] MEDS: FUROSEMIDE 20 MG TAB PO SCH (17:37)
[2022-11-18 22:17] VITALS: BP 96/60
[2022-11-18] MEDS: ALPRAZolam 0.25 MG TAB PO SCH (22:18)
[2022-11-19] MEDS: FREE WATER GT SCH ×6 (02:01→22:44)
[2022-11-19 05:00] VITALS: BP 115/64
[2022-11-19] MEDS: MIDODRINE HCL 10 MG TAB PO SCH ×3 (06:10→17:04)
[2022-11-19] MEDS: FUROSEMIDE 20 MG TAB PO SCH ×2 (06:11→17:06)
[2022-11-19] MEDS: PIPERACILLIN-TAZOB 3.375GM 100 ML IV SCH ×3 (06:11→22:44)
[2022-11-19] MEDS: ALBUTEROL MEDNEB 2.5 mg/3ml NEB NEB SCH ×3 (06:53→12:01)
[2022-11-19] MEDS: IPRATROPIUM BROM 0.5 MG/2.5ML INH SOL NEB SCH ×3 (06:54→12:01)
[2022-11-19 07:33] LABS: Albumin 2.7 g/dL (3.4-5.0); BUN/Creatinine Ratio 22.1; Calcium 8.7 mg/dL (8.5-10.1); Total Protein 6.8 g/dL (6.4-8.2)
[2022-11-19 07:40] LABS: Basophils # (auto) 0 10 ^3/uL (0-0.2); Basophils % (auto) 0.6 % (0.0-2.0); Eosinophils # (auto) 0.2 10 ^3/uL (0-0.8); Eosinophils % (auto) 1.9 % (0.0-7.0); Hematocrit 36.6 % (41.0-53.0); Hemoglobin 11.7 g/dL (13.5-17.5); Lymphocytes # (auto) 1.4 10 ^3/uL (0.4-5.4); Lymphocytes % (auto) 16.6 % (10.0-50.0); Mean Corpuscular Hemoglobin 29.6 pg (28.0-32.0); Mean Corpuscular Hgb Conc. 31.8 g/dL (32.0-36.0); Mean Corpuscular Volume 92.9 fL (80.0-100.0); Monocytes # (auto) 1.1 10 ^3/uL (0-1.3); Monocytes % (auto) 12.7 % (0.0-12.0); Neutrophils % (auto) 68.2 % (37.0-80.0); Nucleated Red Blood Cells % 0.1 %; Red Blood Cells 3.95 10^6/uL (4.5-5.90); Red Cell Distribution Width 16.3 % (11.8-14.3); White Blood Cell 8.7 10^3/uL (4.4-10.8)
[2022-11-19 07:45] VITALS: BP 99/55
[2022-11-19 08:12] LABS: Potassium 3.6 mmol/L (3.5-5.1)
[2022-11-19] MEDS: AMIODARONE HCL 200 MG TAB GT SCH ×2 (09:10→22:44)
[2022-11-19] MEDS: FLORASTOR (S. BOULARDII) 250 MG CAP GT SCH ×2 (09:10→22:44)
[2022-11-19] MEDS: AZITHROMYCIN 250 MG TAB PO SCH (09:10)
[2022-11-19] MEDS: MULTIPLE VITAMINS W/ MINERALS TAB PO SCH (09:10)
[2022-11-19] MEDS: CYANOCOBALAMIN (B-12) 1000 MCG/1 ML VIAL IM SCH (09:11)
[2022-11-19] MEDS: FLUTICASONE PROP NASAL SPR 0.05 % (50MCG) 16GM EACHNOSTRI SCH ×2 (09:11→22:44)
[2022-11-19] MEDS: Pro-Stat SF 30ml Vanilla GT SCH ×2 (09:12→22:45)
[2022-11-19] MEDS: SODIUM CHLOR 0.9% PF (SALINE LOCK) 10ML VIAL/SYR IV SCH ×2 (09:12→22:45)
[2022-11-19] MEDS: ENOXAPARIN SOD 80 MG/0.8ML SYRINGE SC SCH ×2 (09:12→22:45)
[2022-11-19] MEDS: PANTOPRAZOLE 40 MG/10 ML VIAL INJ IV SCH (09:12)
[2022-11-19 10:30] VITALS: BP 115/64
[2022-11-19 22:00] VITALS: BP 99/57
[2022-11-19] MEDS: ALPRAZolam 0.25 MG TAB PO SCH (22:45)
[2022-11-20] MEDS: ALBUTEROL MEDNEB 2.5 mg/3ml NEB NEB SCH ×5 (00:44→18:46)
[2022-11-20] MEDS: IPRATROPIUM BROM 0.5 MG/2.5ML INH SOL NEB SCH ×5 (00:44→18:46)
[2022-11-20] MEDS: FREE WATER GT SCH ×6 (02:34→22:30)
[2022-11-20 05:00] VITALS: BP 101/61
[2022-11-20] MEDS: MIDODRINE HCL 10 MG TAB PO SCH ×3 (05:34→18:16)
[2022-11-20] MEDS: PIPERACILLIN-TAZOB 3.375GM 100 ML IV SCH (05:35)
[2022-11-20] MEDS: FUROSEMIDE 20 MG TAB PO SCH (06:00)
[2022-11-20 07:23] LABS: Basophils # (auto) 0.1 10 ^3/uL (0-0.2); Basophils % (auto) 0.8 % (0.0-2.0); Eosinophils # (auto) 0.1 10 ^3/uL (0-0.8); Eosinophils % (auto) 1.3 % (0.0-7.0); Hematocrit 35.7 % (41.0-53.0); Hemoglobin 11.8 g/dL (13.5-17.5); Lymphocytes # (auto) 1.7 10 ^3/uL (0.4-5.4); Lymphocytes % (auto) 17.3 % (10.0-50.0); Mean Corpuscular Hemoglobin 30.4 pg (28.0-32.0); Mean Corpuscular Volume 92.1 fL (80.0-100.0); Monocytes # (auto) 1.2 10 ^3/uL (0-1.3); Monocytes % (auto) 12.3 % (0.0-12.0); Neutrophils # (auto) 6.7 10 ^3/uL (1.6-8.6); Neutrophils % (auto) 68.3 % (37.0-80.0); Red Blood Cells 3.88 10^6/uL (4.5-5.90); Red Cell Distribution Width 16.5 % (11.8-14.3); White Blood Cell 9.8 10^3/uL (4.4-10.8)
[2022-11-20 07:42] LABS: Calcium 8.6 mg/dL (8.5-10.1); Potassium 3.7 mmol/L (3.5-5.1)
[2022-11-20 07:48] LABS: Albumin 2.7 g/dL (3.4-5.0); BUN/Creatinine Ratio 21.4; Bilirubin, Total 0.9 mg/dL (0.2-1.0); Total Protein 6.7 g/dL (6.4-8.2)
[2022-11-20 08:07] VITALS: BP 90/47
[2022-11-20] MEDS: PANTOPRAZOLE 40 MG/10 ML VIAL INJ IV SCH (08:26)
[2022-11-20] MEDS: ENOXAPARIN SOD 80 MG/0.8ML SYRINGE SC SCH ×2 (08:26→22:31)
[2022-11-20] MEDS: FLORASTOR (S. BOULARDII) 250 MG CAP GT SCH ×2 (08:27→22:31)
[2022-11-20] MEDS: CYANOCOBALAMIN (B-12) 1000 MCG/1 ML VIAL IM SCH (08:27)
[2022-11-20] MEDS: AZITHROMYCIN 250 MG TAB PO SCH (08:28)
[2022-11-20] MEDS: MULTIPLE VITAMINS W/ MINERALS TAB PO SCH (08:28)
[2022-11-20] MEDS: SODIUM CHLOR 0.9% PF (SALINE LOCK) 10ML VIAL/SYR IV SCH ×2 (08:29→22:31)
[2022-11-20] MEDS: FLUTICASONE PROP NASAL SPR 0.05 % (50MCG) 16GM EACHNOSTRI SCH ×2 (08:29→22:30)
[2022-11-20] MEDS: Pro-Stat SF 30ml Vanilla GT SCH ×2 (08:39→22:31)
[2022-11-20] MEDS: AMIODARONE HCL 200 MG TAB GT SCH ×2 (10:00→22:31)
[2022-11-20 13:00] VITALS: BP 99/55
[2022-11-20] MEDS ORDERED: FUROSEMIDE 20 MG TAB PO SCH (13:30)
[2022-11-20] MEDS ORDERED: QUEtiapine FUMARATE 25 MG TAB GT ONE (15:15)
[2022-11-20 16:30] VITALS: BP 89/54
[2022-11-20] MEDS: ALPRAZolam 0.25 MG TAB PO SCH (22:31)
[2022-11-21] VITALS (7 sets, daily range): BP systolic 103–118; BP diastolic 50–66
[2022-11-21] MEDS: ALBUTEROL MEDNEB 2.5 mg/3ml NEB NEB SCH ×5 (00:54→23:58)
[2022-11-21] MEDS: IPRATROPIUM BROM 0.5 MG/2.5ML INH SOL NEB SCH ×5 (00:54→23:58)
[2022-11-21] MEDS: FREE WATER GT SCH ×6 (02:15→21:36)
[2022-11-21] MEDS: MIDODRINE HCL 10 MG TAB PO SCH (06:00)
[2022-11-21 07:04] LABS: Basophils # (auto) 0 10 ^3/uL (0-0.2); Basophils % (auto) 0.3 % (0.0-2.0); Eosinophils # (auto) 0.2 10 ^3/uL (0-0.8); Eosinophils % (auto) 1.9 % (0.0-7.0); Hematocrit 39.3 % (41.0-53.0); Hemoglobin 12.7 g/dL (13.5-17.5); Lymphocytes # (auto) 1.7 10 ^3/uL (0.4-5.4); Lymphocytes % (auto) 21.5 % (10.0-50.0); Mean Corpuscular Hemoglobin 30.1 pg (28.0-32.0); Mean Corpuscular Hgb Conc. 32.4 g/dL (32.0-36.0); Monocytes # (auto) 0.9 10 ^3/uL (0-1.3); Monocytes % (auto) 11.3 % (0.0-12.0); Neutrophils # (auto) 5.2 10 ^3/uL (1.6-8.6); Nucleated Red Blood Cells % 0.3 %; Red Blood Cells 4.22 10^6/uL (4.5-5.90)
[2022-11-21 07:07] LABS: Calcium 8.7 mg/dL (8.5-10.1); Potassium 3.9 mmol/L (3.5-5.1)
[2022-11-21 07:13] LABS: BUN/Creatinine Ratio 21.5; Bilirubin, Total 0.7 mg/dL (0.2-1.0); Total Protein 6.7 g/dL (6.4-8.2)
[2022-11-21] MEDS: AMIODARONE HCL 200 MG TAB GT SCH ×2 (09:47→21:36)
[2022-11-21] MEDS: PANTOPRAZOLE 40 MG/10 ML VIAL INJ IV SCH (09:47)
[2022-11-21] MEDS: FLORASTOR (S. BOULARDII) 250 MG CAP GT SCH ×2 (09:47→21:35)
[2022-11-21] MEDS: SODIUM CHLOR 0.9% PF (SALINE LOCK) 10ML VIAL/SYR IV SCH ×2 (09:48→21:37)
[2022-11-21] MEDS: ENOXAPARIN SOD 80 MG/0.8ML SYRINGE SC SCH ×2 (09:48→21:37)
[2022-11-21] MEDS: FLUTICASONE PROP NASAL SPR 0.05 % (50MCG) 16GM EACHNOSTRI SCH ×2 (09:49→21:36)
[2022-11-21] MEDS: Pro-Stat SF 30ml Vanilla GT SCH ×2 (09:52→22:07)
[2022-11-21] MEDS ORDERED: FUROSEMIDE 40 MG TAB PO SCH (10:00)
[2022-11-21] MEDS: AZITHROMYCIN 250 MG TAB PO SCH (11:49)
[2022-11-21] MEDS: MIDODRINE HCL 10 MG TAB GT SCH ×2 (11:50→17:31)
[2022-11-21] MEDS: QUEtiapine FUMARATE 25 MG TAB GT PRN (11:50)
[2022-11-21] MEDS: FUROSEMIDE 40 MG TAB GT SCH (11:51)
[2022-11-21] MEDS: MULTIPLE VITAMINS W/ MINERALS TAB GT SCH (11:51)
[2022-11-21] MEDS ORDERED: ALBUTEROL SULF 2.5 MG/0.5ML(0.5%) NEB SOLN ONE (12:44)
[2022-11-21] MEDS ORDERED: Jevity 1.2 Cal/Fiber 1 Liter GT SCH (19:00)
[2022-11-21] MEDS: ALPRAZolam 0.25 MG TAB PO SCH (21:35)
[2022-11-22] VITALS (7 sets, daily range): BP systolic 97–111; BP diastolic 52–67
[2022-11-22] MEDS: QUEtiapine FUMARATE 25 MG TAB GT PRN (00:34)
[2022-11-22] MEDS: FREE WATER GT SCH ×6 (02:00→22:00)
[2022-11-22] MEDS: IPRATROPIUM BROM 0.5 MG/2.5ML INH SOL NEB SCH ×3 (06:16→18:13)
[2022-11-22] MEDS: ALBUTEROL MEDNEB 2.5 mg/3ml NEB NEB SCH ×3 (06:17→18:13)
[2022-11-22] MEDS: MIDODRINE HCL 10 MG TAB GT SCH ×3 (06:21→17:41)
[2022-11-22] MEDS: FLORASTOR (S. BOULARDII) 250 MG CAP GT SCH ×2 (08:42→22:00)
[2022-11-22] MEDS: AMIODARONE HCL 200 MG TAB GT SCH ×2 (08:42→22:00)
[2022-11-22] MEDS: FUROSEMIDE 40 MG TAB GT SCH (08:42)
[2022-11-22] MEDS: FLUTICASONE PROP NASAL SPR 0.05 % (50MCG) 16GM EACHNOSTRI SCH ×2 (08:42→22:00)
[2022-11-22] MEDS: PANTOPRAZOLE 40 MG/10 ML VIAL INJ IV SCH (08:43)
[2022-11-22] MEDS: SODIUM CHLOR 0.9% PF (SALINE LOCK) 10ML VIAL/SYR IV SCH ×2 (08:43→22:00)
[2022-11-22] MEDS: Pro-Stat SF 30ml Vanilla GT SCH ×2 (08:43→22:00)
[2022-11-22] MEDS: MULTIPLE VITAMINS W/ MINERALS TAB GT SCH (08:43)
[2022-11-22] MEDS: ENOXAPARIN SOD 80 MG/0.8ML SYRINGE SC SCH ×2 (08:43→22:00)
[2022-11-22 10:32] LABS: Basophils # (auto) 0.1 10 ^3/uL (0-0.2); Basophils % (auto) 0.7 % (0.0-2.0); Eosinophils # (auto) 0.2 10 ^3/uL (0-0.8); Eosinophils % (auto) 1.9 % (0.0-7.0); Hematocrit 36.9 % (41.0-53.0); Hemoglobin 12.3 g/dL (13.5-17.5); Lymphocytes # (auto) 1.4 10 ^3/uL (0.4-5.4); Lymphocytes % (auto) 17.2 % (10.0-50.0); Mean Corpuscular Hemoglobin 30.8 pg (28.0-32.0); Mean Corpuscular Hgb Conc. 33.4 g/dL (32.0-36.0); Mean Corpuscular Volume 92.1 fL (80.0-100.0); Monocytes % (auto) 12.5 % (0.0-12.0); Neutrophils # (auto) 5.7 10 ^3/uL (1.6-8.6); Neutrophils % (auto) 67.7 % (37.0-80.0); Red Blood Cells 4.01 10^6/uL (4.5-5.90); Red Cell Distribution Width 16.4 % (11.8-14.3); White Blood Cell 8.4 10^3/uL (4.4-10.8)
[2022-11-22 10:46] LABS: Albumin 2.8 g/dL (3.4-5.0); BUN/Creatinine Ratio 22.2; Calcium 8.5 mg/dL (8.5-10.1); Potassium 3.6 mmol/L (3.5-5.1)
[2022-11-22 10:49] LABS: Bilirubin, Total 0.7 mg/dL (0.2-1.0); Total Protein 6.4 g/dL (6.4-8.2)
[2022-11-22] MEDS: ALPRAZolam 0.25 MG TAB GT SCH (22:00)
[2022-11-23] MEDS: IPRATROPIUM BROM 0.5 MG/2.5ML INH SOL NEB SCH ×4 (00:41→19:14)
[2022-11-23] MEDS: ALBUTEROL MEDNEB 2.5 mg/3ml NEB NEB SCH ×4 (00:41→19:14)
[2022-11-23] MEDS: FREE WATER GT SCH ×6 (01:57→22:20)
[2022-11-23 04:52] VITALS: BP 103/60
[2022-11-23] MEDS: MIDODRINE HCL 10 MG TAB GT SCH ×3 (06:24→17:48)
[2022-11-23 06:52] LABS: Basophils # (auto) 0 10 ^3/uL (0-0.2); Basophils % (auto) 0.4 % (0.0-2.0); Eosinophils # (auto) 0.1 10 ^3/uL (0-0.8); Eosinophils % (auto) 1.5 % (0.0-7.0); Hematocrit 37.7 % (41.0-53.0); Hemoglobin 12.5 g/dL (13.5-17.5); Mean Corpuscular Hemoglobin 30.6 pg (28.0-32.0); Mean Corpuscular Hgb Conc. 33.1 g/dL (32.0-36.0); Mean Corpuscular Volume 92.4 fL (80.0-100.0); Monocytes # (auto) 1.1 10 ^3/uL (0-1.3); Monocytes % (auto) 10.8 % (0.0-12.0); Neutrophils # (auto) 6.8 10 ^3/uL (1.6-8.6); Neutrophils % (auto) 67.3 % (37.0-80.0); Nucleated Red Blood Cells % 0.1 %; Red Blood Cells 4.07 10^6/uL (4.5-5.90); Red Cell Distribution Width 16.5 % (11.8-14.3); White Blood Cell 10.1 10^3/uL (4.4-10.8)
[2022-11-23 06:57] LABS: Albumin 3.2 g/dL (3.4-5.0); Calcium 8.6 mg/dL (8.5-10.1); Potassium 4.3 mmol/L (3.5-5.1)
[2022-11-23 07:02] LABS: BUN/Creatinine Ratio 22.1; Bilirubin, Total 0.7 mg/dL (0.2-1.0); Total Protein 6.9 g/dL (6.4-8.2)
[2022-11-23 09:00] VITALS: BP 103/61
[2022-11-23] MEDS: FLUTICASONE PROP NASAL SPR 0.05 % (50MCG) 16GM EACHNOSTRI SCH ×2 (09:15→22:21)
[2022-11-23] MEDS: Pro-Stat SF 30ml Vanilla GT SCH ×2 (09:16→22:00)
[2022-11-23] MEDS: FUROSEMIDE 40 MG TAB GT SCH (09:16)
[2022-11-23] MEDS: MULTIPLE VITAMINS W/ MINERALS TAB GT SCH (09:16)
[2022-11-23] MEDS: AMIODARONE HCL 200 MG TAB GT SCH ×2 (09:16→22:00)
[2022-11-23] MEDS: FLORASTOR (S. BOULARDII) 250 MG CAP GT SCH ×2 (09:16→22:19)
[2022-11-23] MEDS: ENOXAPARIN SOD 80 MG/0.8ML SYRINGE SC SCH ×2 (09:17→22:00)
[2022-11-23] MEDS: PANTOPRAZOLE 40 MG/10 ML VIAL INJ IV SCH (09:17)
[2022-11-23] MEDS: SODIUM CHLOR 0.9% PF (SALINE LOCK) 10ML VIAL/SYR IV SCH ×2 (09:17→22:20)
[2022-11-23] MEDS: QUEtiapine FUMARATE 25 MG TAB GT PRN (09:18)
[2022-11-23] MEDS: ACETAMINOPHEN 650 mg PER 20.3 mL UD GT PRN (10:17)
[2022-11-23 12:30] VITALS: BP 108/61
[2022-11-23 14:25] LABS: Urine Bacteria NONE SEEN /hpf (None Seen); Urine Blood 3+ /uL (Negative); Urine Specific Gravity 1.005 (1.001-1.035); Urine WBC 1 /hpf (0 - 3)
[2022-11-23 17:00] VITALS: BP 120/69
[2022-11-23 20:00] VITALS: BP 97/62
[2022-11-23] MEDS: ALPRAZolam 0.25 MG TAB GT SCH (22:20)
[2022-11-24] MEDS: ALBUTEROL MEDNEB 2.5 mg/3ml NEB NEB SCH ×4 (01:11→17:57)
[2022-11-24] MEDS: IPRATROPIUM BROM 0.5 MG/2.5ML INH SOL NEB SCH ×4 (01:11→17:57)
[2022-11-24] MEDS: FREE WATER GT SCH ×6 (02:03→23:07)
[2022-11-24] MEDS: QUEtiapine FUMARATE 25 MG TAB GT PRN (02:28)
[2022-11-24 04:42] VITALS: BP 96/52
[2022-11-24] MEDS: MIDODRINE HCL 10 MG TAB GT SCH ×3 (06:00→17:25)
[2022-11-24 07:26] LABS: Basophils # (auto) 0 10 ^3/uL (0-0.2); Basophils % (auto) 0.3 % (0.0-2.0); Eosinophils # (auto) 0.1 10 ^3/uL (0-0.8); Eosinophils % (auto) 0.9 % (0.0-7.0); Hematocrit 37.1 % (41.0-53.0); Hemoglobin 12.4 g/dL (13.5-17.5); Lymphocytes # (auto) 1.8 10 ^3/uL (0.4-5.4); Lymphocytes % (auto) 17.1 % (10.0-50.0); Mean Corpuscular Hemoglobin 30.8 pg (28.0-32.0); Mean Corpuscular Hgb Conc. 33.3 g/dL (32.0-36.0); Mean Corpuscular Volume 92.7 fL (80.0-100.0); Monocytes # (auto) 1.1 10 ^3/uL (0-1.3); Monocytes % (auto) 11.1 % (0.0-12.0); Neutrophils # (auto) 7.3 10 ^3/uL (1.6-8.6); Neutrophils % (auto) 70.6 % (37.0-80.0); Nucleated Red Blood Cells % 0.1 %; Red Cell Distribution Width 17.1 % (11.8-14.3); White Blood Cell 10.3 10^3/uL (4.4-10.8)
[2022-11-24 07:31] LABS: Potassium 3.8 mmol/L (3.5-5.1)
[2022-11-24 07:44] LABS: Bilirubin, Total 0.8 mg/dL (0.2-1.0); Total Protein 7.3 g/dL (6.4-8.2)
[2022-11-24 08:47] VITALS: BP 104/61
[2022-11-24] MEDS: MULTIPLE VITAMINS W/ MINERALS TAB GT SCH (09:26)
[2022-11-24] MEDS: PANTOPRAZOLE 40 MG/10 ML VIAL INJ IV SCH (09:26)
[2022-11-24] MEDS: FLORASTOR (S. BOULARDII) 250 MG CAP GT SCH ×2 (09:27→22:27)
[2022-11-24] MEDS: AMIODARONE HCL 200 MG TAB GT SCH ×2 (09:27→22:26)
[2022-11-24] MEDS: FUROSEMIDE 40 MG TAB GT SCH (09:27)
[2022-11-24] MEDS: FLUTICASONE PROP NASAL SPR 0.05 % (50MCG) 16GM EACHNOSTRI SCH ×2 (09:28→23:08)
[2022-11-24] MEDS: Pro-Stat SF 30ml Vanilla GT SCH ×2 (09:49→22:29)
[2022-11-24] MEDS: ENOXAPARIN SOD 80 MG/0.8ML SYRINGE SC SCH ×2 (09:49→22:27)
[2022-11-24] MEDS: SODIUM CHLOR 0.9% PF (SALINE LOCK) 10ML VIAL/SYR IV SCH ×2 (09:49→22:27)
[2022-11-24 11:44] LABS: Urine Bacteria NONE SEEN /hpf (None Seen); Urine Blood 3+ /uL (Negative); Urine Mucus FEW (None Seen); Urine Specific Gravity 1.013 (1.001-1.035); Urine Sperm PRESENT /hpf (None Seen); Urine WBC 2 /hpf (0 - 3)
[2022-11-24 12:52] VITALS: BP 94/65
[2022-11-24] MEDS ORDERED: TAMSULOSIN HYDROCHLORIDE 0.4 MG CAP PO ONE (16:00)
[2022-11-24 17:13] VITALS: BP 94/60
[2022-11-24 22:00] VITALS: BP 85/56
[2022-11-24] MEDS: ALPRAZolam 0.25 MG TAB GT SCH (22:26)
[2022-11-25] MEDS: IPRATROPIUM BROM 0.5 MG/2.5ML INH SOL NEB SCH ×3 (00:27→11:41)
[2022-11-25] MEDS: ALBUTEROL MEDNEB 2.5 mg/3ml NEB NEB SCH ×4 (00:27→19:15)
[2022-11-25] MEDS: FREE WATER GT SCH ×6 (03:12→22:19)
[2022-11-25] MEDS: QUEtiapine FUMARATE 25 MG TAB GT PRN ×2 (03:13→14:17)
[2022-11-25 05:00] VITALS: BP 98/58
[2022-11-25] MEDS: MIDODRINE HCL 10 MG TAB GT SCH ×3 (06:00→18:14)
[2022-11-25 07:21] LABS: Basophils # (auto) 0 10 ^3/uL (0-0.2); Basophils % (auto) 0.4 % (0.0-2.0); Eosinophils # (auto) 0.1 10 ^3/uL (0-0.8); Hematocrit 38.9 % (41.0-53.0); Hemoglobin 12.7 g/dL (13.5-17.5); Lymphocytes # (auto) 1.9 10 ^3/uL (0.4-5.4); Lymphocytes % (auto) 20.6 % (10.0-50.0); Mean Corpuscular Hemoglobin 30.7 pg (28.0-32.0); Mean Corpuscular Hgb Conc. 32.8 g/dL (32.0-36.0); Mean Corpuscular Volume 93.5 fL (80.0-100.0); Monocytes # (auto) 1.1 10 ^3/uL (0-1.3); Monocytes % (auto) 11.7 % (0.0-12.0); Neutrophils % (auto) 66.3 % (37.0-80.0); Nucleated Red Blood Cells % 0.1 %; Red Blood Cells 4.16 10^6/uL (4.5-5.90); Red Cell Distribution Width 17.3 % (11.8-14.3); White Blood Cell 9.1 10^3/uL (4.4-10.8)
[2022-11-25 07:33] LABS: Albumin 3.2 g/dL (3.4-5.0); Calcium 9.1 mg/dL (8.5-10.1); Potassium 3.9 mmol/L (3.5-5.1)
[2022-11-25 07:35] LABS: BUN/Creatinine Ratio 25.7
[2022-11-25 07:37] LABS: Bilirubin, Total 0.9 mg/dL (0.2-1.0); Total Protein 7.1 g/dL (6.4-8.2)
[2022-11-25] MEDS: FLORASTOR (S. BOULARDII) 250 MG CAP GT SCH ×2 (08:54→22:20)
[2022-11-25] MEDS: PANTOPRAZOLE 40 MG/10 ML VIAL INJ IV SCH (08:54)
[2022-11-25] MEDS: MULTIPLE VITAMINS W/ MINERALS TAB GT SCH (08:55)
[2022-11-25] MEDS: AMIODARONE HCL 200 MG TAB GT SCH ×2 (08:55→22:20)
[2022-11-25] MEDS: FUROSEMIDE 40 MG TAB GT SCH (08:57)
[2022-11-25] MEDS: SODIUM CHLOR 0.9% PF (SALINE LOCK) 10ML VIAL/SYR IV SCH ×2 (08:57→22:21)
[2022-11-25] MEDS: FLUTICASONE PROP NASAL SPR 0.05 % (50MCG) 16GM EACHNOSTRI SCH ×2 (08:57→22:19)
[2022-11-25 09:00] VITALS: BP 92/54
[2022-11-25] MEDS: ENOXAPARIN SOD 80 MG/0.8ML SYRINGE SC SCH ×2 (10:00→22:00)
[2022-11-25] MEDS: Pro-Stat SF 30ml Vanilla GT SCH ×2 (10:10→22:00)
[2022-11-25 11:08] VITALS: BP 96/58
[2022-11-25 13:00] VITALS: BP 116/76
[2022-11-25 17:00] VITALS: BP 88/52
[2022-11-25] MEDS: TAMSULOSIN HYDROCHLORIDE 0.4 MG CAP PO SCH (18:14)
[2022-11-25] MEDS: Jevity 1.2 Cal/Fiber 1 Liter GT SCH (18:31)
[2022-11-25 22:00] VITALS: BP_SYST 96; BP_SYST 97; BP_DIAS 56; BP_DIAS 58
[2022-11-25] MEDS: ALPRAZolam 0.25 MG TAB GT SCH (22:21)
[2022-11-26] MEDS: ALBUTEROL MEDNEB 2.5 mg/3ml NEB NEB SCH ×4 (00:22→20:36)
[2022-11-26] MEDS: FREE WATER GT SCH ×6 (02:03→22:29)
[2022-11-26] MEDS: QUEtiapine FUMARATE 25 MG TAB GT PRN ×2 (03:11→19:56)
[2022-11-26 05:34] VITALS: BP 111/64
[2022-11-26] MEDS: MIDODRINE HCL 10 MG TAB GT SCH ×3 (06:22→18:45)
[2022-11-26 09:00] VITALS: BP 105/62
[2022-11-26] MEDS: MULTIPLE VITAMINS W/ MINERALS TAB GT SCH (09:22)
[2022-11-26] MEDS: FUROSEMIDE 40 MG TAB GT SCH (09:22)
[2022-11-26] MEDS: FLORASTOR (S. BOULARDII) 250 MG CAP GT SCH ×2 (09:22→22:30)
[2022-11-26] MEDS: AMIODARONE HCL 200 MG TAB GT SCH ×2 (09:23→22:00)
[2022-11-26] MEDS: PANTOPRAZOLE 40 MG/10 ML VIAL INJ IV SCH (09:23)
[2022-11-26] MEDS: FLUTICASONE PROP NASAL SPR 0.05 % (50MCG) 16GM EACHNOSTRI SCH ×2 (09:23→22:29)
[2022-11-26] MEDS: SODIUM CHLOR 0.9% PF (SALINE LOCK) 10ML VIAL/SYR IV SCH ×2 (09:24→22:30)
[2022-11-26] MEDS: ENOXAPARIN SOD 80 MG/0.8ML SYRINGE SC SCH ×2 (11:01→22:30)
[2022-11-26] MEDS: Pro-Stat SF 30ml Vanilla GT SCH ×2 (11:02→22:30)
[2022-11-26 13:00] VITALS: BP 106/60
[2022-11-26 17:00] VITALS: BP 96/59
[2022-11-26] MEDS: TAMSULOSIN HYDROCHLORIDE 0.4 MG CAP PO SCH (18:45)
[2022-11-26] MEDS: Jevity 1.2 Cal/Fiber 1 Liter GT SCH (18:48)
[2022-11-26 22:00] VITALS: BP 91/53
[2022-11-26] MEDS: ALPRAZolam 0.25 MG TAB GT SCH (22:30)
[2022-11-27] MEDS: ALBUTEROL MEDNEB 2.5 mg/3ml NEB NEB SCH ×3 (00:12→12:08)
[2022-11-27] MEDS: FREE WATER GT SCH ×3 (01:40→09:23)
[2022-11-27 05:00] VITALS: BP 97/55
[2022-11-27] MEDS: MIDODRINE HCL 10 MG TAB GT SCH (05:52)
[2022-11-27 06:36] LABS: Basophils # (auto) 0.1 10 ^3/uL (0-0.2); Basophils % (auto) 0.6 % (0.0-2.0); Eosinophils # (auto) 0.1 10 ^3/uL (0-0.8); Eosinophils % (auto) 0.6 % (0.0-7.0); Hematocrit 34.6 % (41.0-53.0); Hemoglobin 11.5 g/dL (13.5-17.5); Lymphocytes # (auto) 1.8 10 ^3/uL (0.4-5.4); Lymphocytes % (auto) 15.6 % (10.0-50.0); Mean Corpuscular Hgb Conc. 33.4 g/dL (32.0-36.0); Mean Corpuscular Volume 92.9 fL (80.0-100.0); Monocytes # (auto) 1.3 10 ^3/uL (0-1.3); Monocytes % (auto) 11.5 % (0.0-12.0); Neutrophils % (auto) 71.7 % (37.0-80.0); Nucleated Red Blood Cells % 0.1 %; Red Blood Cells 3.73 10^6/uL (4.5-5.90); Red Cell Distribution Width 17.9 % (11.8-14.3); White Blood Cell 11.2 10^3/uL (4.4-10.8)
[2022-11-27 07:02] LABS: BUN/Creatinine Ratio 30.9; Calcium 8.5 mg/dL (8.5-10.1); Potassium 4.3 mmol/L (3.5-5.1)
[2022-11-27 08:49] VITALS: BP 105/63
[2022-11-27] MEDS: FLORASTOR (S. BOULARDII) 250 MG CAP GT SCH (09:21)
[2022-11-27] MEDS: ENOXAPARIN SOD 80 MG/0.8ML SYRINGE SC SCH (09:21)
[2022-11-27] MEDS: PANTOPRAZOLE 40 MG/10 ML VIAL INJ IV SCH (09:21)
[2022-11-27] MEDS: SODIUM CHLOR 0.9% PF (SALINE LOCK) 10ML VIAL/SYR IV SCH (09:22)
[2022-11-27] MEDS: Pro-Stat SF 30ml Vanilla GT SCH (09:22)
[2022-11-27] MEDS: MULTIPLE VITAMINS W/ MINERALS TAB GT SCH (09:22)
[2022-11-27] MEDS: FUROSEMIDE 40 MG TAB GT SCH (09:22)
[2022-11-27] MEDS: AMIODARONE HCL 200 MG TAB GT SCH (09:23)
[2022-11-27] MEDS: FLUTICASONE PROP NASAL SPR 0.05 % (50MCG) 16GM EACHNOSTRI SCH (09:23)
[2022-11-27] MEDS ORDERED: MID10T GT (09:41)
[2022-11-27] MEDS ORDERED: APIX5TAB PO (09:41)
[2022-11-27] MEDS ORDERED: FURO40TA4 GT (09:41)
[2022-11-27] MEDS ORDERED: AMOX200S6 PO (09:41)
[2022-11-27] MEDS ORDERED: TAM04C PO (09:41)
[2022-11-27] MEDS ORDERED: AMIO200T33 PO (09:42)
[2022-11-27] MEDS ORDERED: AMOXICILLIN 200MG/5ml ORAL Susp 50ML PO SCH (10:00)
[2022-11-27 12:04] VITALS: BP 105/63
[2022-12-02] MEDS ORDERED: LORazepam 2MG/ML-1ML VIAL IV ONE (11:15)
== END 2022-11-27 13:05 | disposition home health service (06) | DRG 870 ==
LOC: EDBD 21:22 → ER 21:22 → OVERFLOW 10-26 09:49 → ICU CENTRL 10-28 10:04 → TELE-EAST 11-04 14:50 → ICU WEST 11-11 12:15 → TELE-CENTR 11-12 22:15
PROVIDERS: ADMIT Registered Nurse; ATTEND Student in an Organized Health Care Education/Training Program
PROC: 5A1955Z Respiratory Ventilation, Greater than 96 Consecutive Hours (ICD-10-PCS; principal; 2022-10-26)
PROC: 0BH17EZ Insertion of Endotracheal Airway into Trachea, Via Natural or Artificial Opening (ICD-10-PCS; 2022-10-26)
PROC: 3E03317 Introduction of Other Thrombolytic into Peripheral Vein, Percutaneous Approach (ICD-10-PCS; 2022-10-29)
PROC: 30233N1 Transfusion of Nonautologous Red Blood Cells into Peripheral Vein, Percutaneous Approach (ICD-10-PCS; 2022-11-08)
PROC: 30233K1 Transfusion of Nonautologous Frozen Plasma into Peripheral Vein, Percutaneous Approach (ICD-10-PCS; 2022-11-10)
PROC: 02HV33Z Insertion of Infusion Device into Superior Vena Cava, Percutaneous Approach (ICD-10-PCS; 2022-11-12)
DX: A41.9 Sepsis, unspecified organism (principal); E43 Unspecified severe protein-calorie malnutrition; N17.0 Acute kidney failure with tubular necrosis; I60.9 Nontraumatic subarachnoid hemorrhage, unspecified; J69.0 Pneumonitis due to inhalation of food and vomit; J15.0 Pneumonia due to Klebsiella pneumoniae; J96.21 Acute and chronic respiratory failure with hypoxia; J44.1 Chronic obstructive pulmonary disease with (acute) exacerbation; J98.11 Atelectasis; J44.0 Chronic obstructive pulmonary disease with (acute) lower respiratory infection; F03.911 Unspecified dementia, unspecified severity, with agitation; K94.23 Gastrostomy malfunction; Z68.41 Body mass index [BMI] 40.0-44.9, adult; I82.621 Acute embolism and thrombosis of deep veins of right upper extremity; Z20.822 Contact with and (suspected) exposure to COVID-19; I48.0 Paroxysmal atrial fibrillation; E78.5 Hyperlipidemia, unspecified; E83.41 Hypermagnesemia; E86.0 Dehydration; I72.4 Aneurysm of artery of lower extremity; D64.9 Anemia, unspecified; E66.9 Obesity, unspecified; K59.00 Constipation, unspecified; I73.9 Peripheral vascular disease, unspecified; N40.1 Benign prostatic hyperplasia with lower urinary tract symptoms; R33.8 Other retention of urine; Z79.01 Long term (current) use of anticoagulants; Z98.2 Presence of cerebrospinal fluid drainage device; Z92.3 Personal history of irradiation; Z90.49 Acquired absence of other specified parts of digestive tract; Z92.21 Personal history of antineoplastic chemotherapy; Z88.1 Allergy status to other antibiotic agents; Z85.01 Personal history of malignant neoplasm of esophagus; Z86.73 Personal history of transient ischemic attack (TIA), and cerebral infarction without residual deficits
CPT/HCPCS: 31500; 36415; 36600; 71045; 71250; 74018; 74176; 74177; 80048; 80053; 80061; 81001; 81003; 82270; 82570; 82607; 82728; 82746; 82805; 82962; 83036; 83540; 83550; 83605; 83615; 83735; 83880; 84132; 84156; 84300; 84443; 84484; 85007; 85014; 85018; 85025; 85027; 85045; 85610; 85730; 86850; 86900; 86901; 86920; 87040; 87045; 87070; 87077; 87081; 87086; 87088; 87186; 87205; 87426; 87427; 87493; 87804; 93005; 93306; 93926; 93970; 93971; 94002; 94003; 94640; 94660; 96365; 96367; 96368; 96375; 97110; 97116; 97163; 97530; 99291; C9113; G0378; J0696; J1100; J2001; J2543; J2704; J3480; J3490; J7060; P9047; Q9967